=== PATIENT | female | born 1935 | race Caucasian/White ===

== ENCOUNTER 2016-03-25 22:02 | Inpatient (IN) | payer MEDICARE, MEDICAID ==
[2016-03-25] MEDS ORDERED: MORPHINE 4 MG/ML INJECTION IV ONE (22:21)
--- NOTE | 2016-03-25 22:24 | EDPRACDOC ---
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 SHE FELL ONTO HER RIGHT HIP/LEG. UNABLE TO BEAR WEIGHT. PAIN FROM RIGHT HIP TO RIGHT KNEE. DAUGHTER HAS CONCERN ABOUT HER POSSIBLY TAKING SOME OPIATES BECAUSE SHE HAS BEEN ACTING ABNORMALLY FOR THE LAST FEW DAYS. Injuries/Pain Location: Reports: pelvis (RIGHT), lower extremity (RIGHT) Reason for Fall: Reports: tripped Loss of Consciousness: no loss of consciousness Associated Symptoms (Fall): Denies: abdominal pain, chest pain, headache Allergies/Adverse Reactions: Allergies No Known Allergies Allergy (Verified 11/08/15 04:04) Home Medications: Ambulatory Orders Atenolol [Tenormin] 25 mg PO DAILY 03/12/13 Gabapentin [Neurontin] 100 mg PO TID 03/12/13 Alprazolam [Xanax] 1 mg PO HS PRN 11/27/13 Ranitidine HCl [Zantac] 150 mg PO BID 11/27/13 Acetaminophen Tablet [TYLENOL Tablet] 650 mg PO Q6H PRN #60 tablet 11/10/15 Ensure [Ensure Plus ([place])] 240 ml PO 1400 #30 can 11/10/15 Guaifenesin [Robitussin] 10 ml PO Q6H PRN #240 udc 11/10/15 ED Past Medical History - History Reviewed Yes Nurses notes reviewed and agree except as marked - Patient Medical History Cardiac History: Reports: Atrial Fibrillation, Hypertension Respiratory History: Reports: Cough GI/ History: Reports: Urinary Tract Infection, Gastroesophageal Reflux Musculoskeletal History: Reports: Arthritis, Osteoarthritis Psychological History: Reports: Anxiety. Denies: Depression, Substance Use Disorder Systemic History: Reports: Hypothyroidism. Denies: Anemia Additional Past Medical History: HYPONATREMIA Surgical History: Reports: Cholecystectomy - Family Medical History Reports: Hypertension, Cancer, Stroke, Cardiac Disorders. Denies: Diabetes - Social Medical History Smoking Status: Never smoker Social History: Denies: Cocaine Use, Marijuana Use, Substance Use Disorder Lives In: Home EDM Review of Systems - Review of Systems ROS Negative Except as Marked: Yes All systems reviewed and were negative except as marked Constitutional: negative: Fever Respiratory: negative: Shortness of Breath Cardiovascular: negative: Chest Pain Gastrointestinal: negative: Nausea, Pain, Vomiting Musculoskeletal: Hip (RIGHT), Knee (RIGHT), Leg (RIGHT UPPER LEG PAIN) - Physical Exam Constitutional: Alert Oriented to: Time, Person, Place Last recorded Vital Signs: Last Vital Signs Temp 98.1 F 03/25/16 22:10 Pulse 83 03/25/16 22:10 Resp 18 03/25/16 22:10 BP 131/68 03/25/16 22:10 Pulse Ox 95 03/25/16 22:10 Oxygen Pulse Oxygen Saturation 95 O2 Device Room Air Oxygen Flow Rate Fraction of Inspired Oxygen ( FIO2) - HEENT Head: negative: Deformity, Laceration Eye Exam: negative: Conjunctival Injection, Pale Conjunctiva Nose: negative: Congestion, Discharge, Deformity Neck: negative: Limited ROM - Respiratory/Cardiovascular Respiratory: Normal - CTA. negative: Accessory Muscle Use, Diminished, Tachypnea Cardiovascular: negative: Bradycardia, Tachycardia, Irregular - GI Auscultation: Normal Palpation: Normal Tenderness: Non tender - Musculoskeletal Extremities: Pedal Pulse (PALPABLE), Radial Pulse (PALPABLE). negative: Calf Tenderness, Pedal Edema - Integumentary Skin: Warm, Dry. negative: Rash - Neurologic Memory Impaired: Normal Mood Description: Anxious, Appropriate Thought: Coherent Perception: Normal ED Injury/Fall Exam - Physical Exam Head Injury: no evidence of injury Extremity Exam: pelvis stable, bony-point tenderness (RIGHT LATERAL HIP, RIGHT LATERAL THIGH, AND RIGHT LATERAL KNEE.) - [place] Coma Score Best Eye Response (Judith): (4) open spontaneously Best Verbal Response (Judith): (5) oriented Best Motor Response (Judith): (6) obeys commands Judith Total: 15 - Results 03/25/16 22:05 03/25/16 22:05 - EKG EKG #1 EKG Time: 22:26 -: Yes EKG interpreted by me Rate: bpm: 76 Rhythm: NSR Block: None ST: Nonsp - Departure Yes I personally saw and evaluated the patient. Disposition: Admit IP To This Hospital Condition: Stable Final Diagnosis: Anemia Intertrochanteric fracture of right hip Qualifiers: Encounter type: initial encounter Fracture type: closed Qualified Code(s): S72.141A - Displaced intertrochanteric fracture of right femur, initial encounter for closed fracture Decision to Admit Time: 23:44 Decision to admit date: 03/25/16 Decision to admit: from ED
[2016-03-25 23:01] LABS: BLOOD UREA NITROGEN 23 MG/DL (7-17); CALC CORRECTED 9.2 MG/DL (8.4-10.2); CALCIUM 8.9 MG/DL (8.4-10.2); CALCULATED OSMOLALITY 278 MOs/Kg (270-290); CHLORIDE 109 mEq/L (98-107); CPK TOTAL WITH POSSIBLE MB 32 IU/L (30-134); GLUCOSE 117 MG/DL (70-99); SODIUM LEVEL 142 mEq/L (137-146); TOTAL PROTEIN 6.8 G/DL (6.3-8.2)
[2016-03-25 23:02] LABS: AUTOMATED BASOPHIL 0.4 % (0-2); AUTOMATED EOSINOPHIL 1.9 % (0-5); AUTOMATED LYMPH 22.4 % (17-44); AUTOMATED MONOCYTE 14.8 % (3-10); AUTOMATED NEUTROPHIL 60.5 % (45-76); MPV 8.2 fL (7.4-10.4); PARTIAL THROMB. TIME 24.5 SEC (22-35)
[2016-03-25 23:24] LABS: ALL NEG? NO
--- NOTE | 2016-03-25 23:26 | DIRPT ---
CLINICAL DATA: Fall tripping over door mat. Difficulty bearing weight. EXAM: CHEST 1 VIEW COMPARISON: 10/03/2015 FINDINGS: Atherosclerotic calcification of the aortic arch and borderline enlargement of the cardiopericardial silhouette, without edema. Dextroconvex lower thoracic scoliosis. The lungs appear clear. No pneumothorax or pleural effusion. IMPRESSION: 1. Stable appearance of aortic atherosclerosis and tortuosity, borderline enlargement of the cardiopericardial silhouette, and thoracic scoliosis. Electronically Signed By: Elroy Potts M.D. On: 03/25/2016 23:23
--- NOTE | 2016-03-25 23:27 | DIRPT ---
CLINICAL DATA: Status post fall from standing, onto right hip. Right hip pain. Initial encounter. EXAM: BILATERAL HIP (WITH PELVIS) 3-4 VIEWS COMPARISON: CT of the abdomen and pelvis performed 09/07/2015 FINDINGS: There is a comminuted right femoral intertrochanteric fracture, with lateral displacement of the distal femur, and medial angulation. There are chronic displaced fractures of the lateral superior and inferior pubic rami bilaterally, with some degree of healing response noted particularly at the inferior pubic rami. The right superior pubic ramus fracture likely extends to the acetabulum. Degenerative change is noted along the lower lumbar spine. Sclerotic change is seen at the sacroiliac joints. The visualized bowel gas pattern is grossly unremarkable. IMPRESSION: 1. Acute comminuted right femoral intertrochanteric fracture, with lateral displacement of the distal femur, and medial angulation. 2. Chronic displaced fractures of the superior and inferior pubic rami bilaterally, with some degree of healing response noted particularly at the inferior pubic rami. The right superior pubic ramus fracture likely extends to the acetabulum. Electronically Signed By: Sahil Cesar M.D. On: 03/25/2016 23:24
--- NOTE | 2016-03-25 23:28 | DIRPT ---
CLINICAL DATA: Fall from standing height, unable to bear weight. Right lower extremity pain. EXAM: RIGHT FEMUR - 2 VIEW COMPARISON: None. FINDINGS: The tops of the femurs are included on the pelvis exam and demonstrate and intertrochanteric fracture of the right hip along with pelvic fractures. Tricompartmental spurring and articular space loss in the knee noted with chondrocalcinosis of the menisci. No femoral shaft fracture identified. IMPRESSION: 1. The intertrochanteric fracture the right proximal femur is shown on the dedicated hip and pelvis radiographs. No distal femoral fracture is identified. 2. Chondrocalcinosis of the knee with tricompartmental spurring and articular space narrowing. Electronically Signed By: Elroy Potts M.D. On: 03/25/2016 23:25
--- NOTE | 2016-03-25 23:29 | DIRPT ---
CLINICAL DATA: Fall, unable to bear weight on the right lower extremity. EXAM: RIGHT KNEE - 1-2 VIEW COMPARISON: 04/19/2008 FINDINGS: Chondrocalcinosis with worsening loss of articular space especially in the medial compartment and patellofemoral joint, and progressive marginal spurring. No knee effusion or fracture identified. Atherosclerotic calcification noted. No knee effusion. IMPRESSION: 1. 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 No acute findings in the knee. Electronically Signed By: Elroy Potts M.D. On: 03/25/2016 23:26
[2016-03-25 23:35] LABS: MDMA* NEG (NEGATIVE); METHAMPHETAMINES NEG (NEGATIVE)
[2016-03-25 23:36] LABS: OXYCODONE NEG (NEGATIVE)
[2016-03-25 23:44] LABS: LEUKOCYTES/URINE 2+ (NEGATIVE); NITRITE/URINE NEG (NEGATIVE); URINE OCCULT BLOOD 1+ (NEG/TRACE); WBC/URINE TNTC (0-5)
[2016-03-26] MEDS ORDERED: CHLORHEXIDINE (HIBICLENS) 4 OZ BOTTLE TOP ONE (00:07)
--- NOTE | 2016-03-26 01:00 | HISTPHYS ---
- Chief Complaint fall - History of Present Illness PRIMARY CARE PROVIDER: Dr. Sanchez HPI: The patient is an 81 yo woman who fell. The patient was walking and caught her foot on the rug, and fell. She had instant pain in her right hip and could not stand up. Onset: last night (several hours ago) Duration: intermittent. Location: right hip. Radiation: right leg. Character: 10/10. Sharp pain. Alleviated by: Nothing. Exacerbated by: Nothing. Associated Symptoms: Difficulty moving leg. Can move toes. No numbness. Noticed a color change of her urine. No dysuria. Headache. Treatments: none at home except usual medications. - Medical History Cardiac History: Reports: Atrial Fibrillation, Hypertension. Denies: Congestive Heart Failure, Heart Attack Respiratory History: Reports: Cough GI/ History: Reports: Urinary Tract Infection, Gastroesophageal Reflux Musculoskeletal History: Reports: Arthritis, Osteoarthritis (and back pain, fracture) Systemic History: Reports: Hypothyroidism (after thyroidectomy). Denies: Anemia Neurological History: Denies: Cerebrovascular Accident Psychological History: Reports: Anxiety. Denies: Depression, Substance Use Disorder - Surgical History Reports: Appendectomy, Cholecystectomy, Other (Back surgery. Thyroidectomy.) - Medictions/Allergies Allergies No Known Allergies Allergy (Verified 11/08/15 04:04) Current Medication List: Reviewed Home Medications Atenolol [Tenormin] 25 mg PO DAILY 03/12/13 Gabapentin [Neurontin] 100 mg PO TID 03/12/13 Alprazolam [Xanax] 1 mg PO HS PRN 11/27/13 Ranitidine HCl [Zantac] 150 mg PO BID 11/27/13 Acetaminophen Tablet [TYLENOL Tablet] 650 mg PO Q6H PRN #60 tablet 11/10/15 Ensure [Ensure Plus ([place])] 240 ml PO 1400 #30 can 11/10/15 Guaifenesin [Robitussin] 10 ml PO Q6H PRN #240 udc 11/10/15 - Family History Reports: Hypertension, Cancer, Stroke, Cardiac Disorders. Denies: Diabetes - Social History Smoking Status: Never smoker Social History: Denies: Alcohol Use, Substance Use Disorder - Review of Systems GENERAL: No Fever, chills, or diaphoresis. Positive for fatigue/malaise. HEENT: No ear pain or discharge. No nasal discharge or bleeding. No throat pain or swelling. No eye pain or eye redness. RESPIRATORY: No cough, wheezing, or shortness of breath. CARDIOVASCULAR: No chest pain or palpitations. GI: No abdominal pain, nausea, vomiting, diarrhea, constipation, or bloody stool. NEUROLOGICAL: No headache or focal weakness. INTEGUMENT: no rashes, itching, or lesions. LYMPHATIC SYSTEM: no lymph node swelling or pain. MUSCULOSKELETAL: Except as per HPI; othwervise, no new pain or joint swelling. GENITOURINARY: Noticed a color change of her urine. No dysuria or hematuria. ENDOCRINE: No polyuria or polydipsia. HEME: No chronic anemia, bleeding, or easy bruising. - Physical Exam Vital Signs: Initial Vitals Temperature 98.1 F 03/25/16 22:10 Pulse Rate 83 03/25/16 22:10 Respiratory Rate 18 03/25/16 22:10 Blood Pressure 131/68 03/25/16 22:10 Pulse Oxygen Saturation 95 03/25/16 22:10 Vital Signs - 24 hr 03/25/16 03/25/16 03/26/16 22:10 23:32 00:41 Temperature 98.1 F Pulse Rate 83 75 79 Respiratory 18 22 18 Rate Blood Pressure 131/68 148/71 150/75 Pulse Oxygen 95 96 96 Saturation Weight: 62.2 kg Height: 5' BMI: 26.8 - Other Exam Other Exam Findings: GENERAL: Ill-appearing, well nourished, in acute distress. HEENT: Normocephalic, atraumatic; pupils equal and round. Nares patent, without discharge or bleeding. No oropharyngeal lesions or erythema. Mucous membranes are dry. NECK: is supple, no masses, trachea midline. RESPIRATORY: Clear to auscultation bilaterally. Chest wall movements are symmetric. No use of accessory muscles to breathe. No wheezing, rales, rhonchi. CARDIOVASCULAR: Normal S1, S2. No rubs, or gallops. PMI non-displaced. Carotids : no carotid bruits. No bradycardia or tachycardia. DP pulses 2+ bilaterally. GI: soft, nontender, non-distended, normal active bowel sounds. No hepatosplenomegaly. INTEGUMENT: Clean, dry, and intact. No rashes. No lesions. MUSCULOSKELETAL: . No cyanosis. No clubbing. Edema: none bilaterally. Tenderness on right hip and right upper thigh. NEUROLOGICAL: Cranial nerves 2-12 grossly intact. Motor 5/5 throughout. Reflexes : 2+ bilaterally. Babinski: toes downgoing bilaterally. Intact Finger to nose. Sensory grossly intact to light touch. Intact rapid alternating movements bilaterally. No pronator drift. PSYCHIATRIC: Fully oriented. Normal and appropriate affect. LYMPHATIC: No cervical lymphadenopathy. No supraclavicular lymphadenopathy. - Lab Results Laboratory Results - last 24 hr 03/25/16 03/25/16 03/25/16 22:05 22:05 22:05 WBC 9.7 RBC 3.20 L Hgb 11.0 L Hct 32.5 L MCV 102 H MCH 34.5 H MCHC 33.9 RDW 12.9 Plt Count 196 MPV 8.2 Neut % (Auto) 60.5 Lymph % (Auto) 22.4 [place] % (Auto) 14.8 H Eos % (Auto) 1.9 Baso % (Auto) 0.4 Absolute Neuts (auto) 5.82 Absolute Lymphs (auto) 2.13 PT INR APTT Sodium 142 Potassium 3.6 Chloride 109 H Carbon Dioxide 19 L Anion Gap 18 H BUN 23 H Creatinine 0.80 Estimated GFR (MDRD) > 60 Glucose 117 H Calculated Osmolality 278 Calcium 8.9 Corrected Calcium 9.2 Total Bilirubin 0.4 AST 57 H ALT 67 H Alkaline Phosphatase 210 H Creatine Kinase 32 Troponin I < 0.01 Total Protein 6.8 Albumin 3.7 Urine Color Urine Clarity Urine pH Ur Specific [place] Urine Protein Urine Glucose (UA) Urine Ketones Urine Occult Blood Urine Nitrite Urine Bilirubin Urine Urobilinogen Ur Leukocyte Esterase Urine RBC Urine WBC Urine WBC Clumps Ur Epithelial Cells Urine Bacteria Urine Opiates Screen Ur Oxycodone Screen Urine Methadone Screen Ur Barbiturates Screen Ur Tricyclics Screen Ur Phencyclidine Scrn Ur Amphetamines Screen U Methamphetamines Scrn Urine MDMA Screen U Benzodiazepines Scrn Urine Cocaine Screen Ur THC Screen Blood Type O POSITIVE Antibody Screen Negative 03/25/16 03/25/16 03/25/16 22:05 23:19 23:19 WBC RBC Hgb Hct MCV MCH MCHC RDW Plt Count MPV Neut % (Auto) Lymph % (Auto) [place] % (Auto) Eos % (Auto) Baso % (Auto) Absolute Neuts (auto) Absolute Lymphs (auto) PT 10.0 INR 1.0 APTT 24.5 Sodium Potassium Chloride Carbon Dioxide Anion Gap BUN Creatinine Estimated GFR (MDRD) Glucose Calculated Osmolality Calcium Corrected Calcium Total Bilirubin AST ALT Alkaline Phosphatase Creatine Kinase Troponin I Total Protein Albumin Urine Color Yellow Urine Clarity Sl cldy Urine pH 6.0 Ur Specific [place] 1.015 Urine Protein 1+ H Urine Glucose (UA) Neg Urine Ketones Neg Urine Occult Blood 1+ H Urine Nitrite Neg Urine Bilirubin Neg Urine Urobilinogen <2.0 Ur Leukocyte Esterase 2+ H Urine RBC 10-20 H Urine WBC Tntc H Urine WBC Clumps Present H Ur Epithelial Cells Occ Urine Bacteria 3+ H Urine Opiates Screen *positive* H Ur Oxycodone Screen Neg Urine Methadone Screen Neg Ur Barbiturates Screen Neg Ur Tricyclics Screen Neg Ur Phencyclidine Scrn Neg Ur Amphetamines Screen Neg U Methamphetamines Scrn Neg Urine MDMA Screen Neg U Benzodiazepines Scrn Neg Urine Cocaine Screen Neg Ur THC Screen Neg Blood Type Antibody Screen - Diagnostic Findings DIAGNOSTIC DATA: EK bpm.Unusual P axis, possible ectopic atrial rhythm. Minimal voltage criteria for LVH. T-wave inversion in lead 3. Reviewed EKG personally. IMAGING: Chest x-ray, viewed personally: EXAM: CHEST 1 VIEW COMPARISON: 10/03/2015 FINDINGS: Atherosclerotic calcification of the aortic arch and borderline enlargement of the cardiopericardial silhouette, without edema. Dextroconvex lower thoracic scoliosis. The lungs appear clear. No pneumothorax or pleural effusion. IMPRESSION: 1. Stable appearance of aortic atherosclerosis and tortuosity, borderline enlargement of the cardiopericardial silhouette, and thoracic scoliosis. Hip X-ray: EXAM: BILATERAL HIP (WITH PELVIS) 3-4 VIEWS COMPARISON: CT of the abdomen and pelvis performed 09/07/2015 FINDINGS: There is a comminuted right femoral intertrochanteric fracture, with lateral displacement of the distal femur, and medial angulation. There are chronic displaced fractures of the lateral superior and inferior pubic rami bilaterally, with some degree of healing response noted particularly at the inferior pubic rami. The right superior pubic ramus fracture likely extends to the acetabulum. Degenerative change is noted along the lower lumbar spine. Sclerotic change is seen at the sacroiliac joints. The visualized bowel gas pattern is grossly unremarkable. IMPRESSION: 1. Acute comminuted right femoral intertrochanteric fracture, with lateral displacement of the distal femur, and medial angulation. 2. Chronic displaced fractures of the superior and inferior pubic rami bilaterally, with some degree of healing response noted particularly at the inferior pubic rami. The right superior pubic ramus fracture likely extends to the acetabulum. EXAM: RIGHT FEMUR - 2 VIEW COMPARISON: None. FINDINGS: The tops of the femurs are included on the pelvis exam and demonstrate and intertrochanteric fracture of the right hip along with pelvic fractures. Tricompartmental spurring and articular space loss in the knee noted with chondrocalcinosis of the menisci. No femoral shaft fracture identified. IMPRESSION: 1. The intertrochanteric fracture the right proximal femur is shown on the dedicated hip and pelvis radiographs. No distal femoral fracture is identified. 2. Chondrocalcinosis of the knee with tricompartmental spurring and articular space narrowing. EXAM: RIGHT KNEE - 1-2 VIEW COMPARISON: 04/19/2008 FINDINGS: Chondrocalcinosis with worsening loss of articular space especially in the medial compartment and patellofemoral joint, and progressive marginal spurring. No knee effusion or fracture identified. Atherosclerotic calcification noted. No knee effusion. IMPRESSION: 1. 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 No acute findings in the knee. - Assessment (1) Intertrochanteric fracture of right hip S72.141A - DISPLACED INTERTROCHANTERIC FRACTURE OF RIGHT FEMUR, INIT Acute Present on Admission: Yes Qualifiers: Encounter type: initial encounter Fracture type: closed Qualified Code(s) : S72.141A - Displaced intertrochanteric fracture of right femur, initial encounter for closed fracture Plan: Surgical management per Orthopedic surgeon. Patient is at mild to moderate risk due to her age and hypertension, but benefits of surgery outweigh any risks, so would recommend proceeding with surgery. (2) Acute cystitis with hematuria N30.01 - ACUTE CYSTITIS WITH HEMATURIA Acute Present on Admission: Yes Plan: Cultures. IV ceftriaxone. (3) Elevated LFTs R94.5 - ABNORMAL RESULTS OF LIVER FUNCTION STUDIES Acute Present on Admission: Yes No abdominal pain or abdominal symptoms. Plan: Consider recheck of labs in a few days. (4) Right hip pain M25.551 - PAIN IN RIGHT HIP Acute Present on Admission: Yes Plan: IV dilaudid. - Plan Note: Per report, one of patient's daughters gave the patient some of the daughter's narcotic pain medication. The patient admitted that the daughter gave her pain medication, but the patient initially reported it was just Tylenol, then admitted that the pain medication was narcotic. Drug screen was positive for opiates. Patient informed that it is illegal to take someone else's pain medication and that it is also dangerous. Patient advised never to take someone else's medication. Case Care Discussed with: Patient, Nursing Staff
[2016-03-26 01:09] VITALS: BMI 26.3
[2016-03-26] MEDS: HYDROmorphone 1 MG INJECTION IV PRN ×2 (02:00→05:37)
[2016-03-26] MEDS: CEFTRIAXONE 1 GM in D5W 100 ML IV SCH (02:01)
[2016-03-26] MEDS ORDERED: Non-Formulary Medication ITEM (Alprazolam [Xanax] 1 MG) PO PRN (02:29)
[2016-03-26] MEDS ORDERED: GUAIFEN 100 MG-DEXTROMETH 10 MG PER 5 ML PO PRN (02:34)
[2016-03-26] MEDS ORDERED: SIMETHICONE 80 MG TAB PO PRN (02:34)
[2016-03-26] MEDS ORDERED: BENZONATATE 100 MG PERLES PO PRN (02:34)
[2016-03-26] MEDS ORDERED: BISACODYL 5 MG TAB PO PRN (02:34)
[2016-03-26] MEDS ORDERED: PROMETHAZINE 25 MG/ML VIAL IV PRN (02:34)
[2016-03-26] MEDS ORDERED: Docusate Sodium 100 MG CAP PO PRN (02:34)
[2016-03-26] MEDS ORDERED: ONDANSETRON HCL 4 MG/2 ML VIAL IV PRN ×2 (02:34→12:08)
[2016-03-26] MEDS ORDERED: ACETAMINOPHEN 325 MG SUPP PR PRN (02:34)
[2016-03-26] MEDS ORDERED: ACETAMINOPHEN 325 MG/TAB TABLET PO PRN (02:34)
[2016-03-26] MEDS ORDERED: SENNA CONCENTRATE TAB PO PRN (02:34)
[2016-03-26 03:43] LABS: MPV 8.1 fL (7.4-10.4)
[2016-03-26 03:47] LABS: BLOOD UREA NITROGEN 19 MG/DL (7-17); CALCIUM 8.9 MG/DL (8.4-10.2); CALCULATED OSMOLALITY 272 MOs/Kg (270-290); CHLORIDE 106 mEq/L (98-107); GLUCOSE 118 MG/DL (70-99); SODIUM LEVEL 140 mEq/L (137-146)
[2016-03-26] MEDS: GABAPENTIN 100 MG CAP PO SCH ×3 (05:36→20:45)
[2016-03-26] MEDS ORDERED: MUPIROCIN 2% OINT 22 GM TUBE NAS SCH (06:00)
[2016-03-26] MEDS ORDERED: Acetaminophen, Intravenous 1,000 MG/100 ML IVBOT IV ONE (06:00)
[2016-03-26] MEDS ORDERED: CEFAZOLIN 1 GM VIAL IV ONE (06:00)
[2016-03-26] MEDS: ATENOLOL 25 MG TAB PO SCH (08:47)
--- NOTE | 2016-03-26 08:53 | PCM.ORTHCO ---
Consultation Date: 03/26/16 Reason for Consult: Fracture (R hip) - History of Present Illness Mrs Linares is an 81-year-old female who presented to [facility] ER after suffering a mechanical fall from a standing height onto her right hip. She noted immediate pain was unable to bear weight. She was found to have a comminuted right intertrochanteric hip fracture. She did not hit her head. Did not lose consciousness. Denies having any chest pain, shortness of breath or palpitations presently or prior to her fall. She denies having any pain elsewhere or other associated injury. No pre-existing hip pain prior to her fall. She does have a history of severe osteoarthritis of her knees Chief Complaint: fall - Past Medical and Surgical History Cardiac History: Reports: Atrial Fibrillation, Hypertension. Denies: Congestive Heart Failure, Heart Attack Respiratory History: Reports: Cough GI/ History: Reports: Urinary Tract Infection, Gastroesophageal Reflux Systemic History: Reports: Hypothyroidism (after thyroidectomy). Denies: Anemia Musculoskeletal History: Reports: Arthritis, Osteoarthritis (and back pain, fracture) Psychological History: Reports: Anxiety. Denies: Depression, Alcoholism, Substance Use Disorder Neurological History: Denies: Cerebrovascular Accident Past Surgical History: Reports: Appendectomy, Cholecystectomy, Other (Back surgery. Thyroidectomy.) Allergies No Known Allergies Allergy (Verified 11/08/15 04:04) Home Medications Atenolol [Tenormin] 25 mg PO DAILY 03/12/13 Gabapentin [Neurontin] 100 mg PO TID 03/12/13 Alprazolam [Xanax] 1 mg PO HS PRN 11/27/13 Ranitidine HCl [Zantac] 150 mg PO BID 11/27/13 Acetaminophen Tablet [TYLENOL Tablet] 650 mg PO Q6H PRN #60 tablet 11/10/15 Ensure [Ensure Plus ([place])] 240 ml PO 1400 #30 can 11/10/15 Guaifenesin [Robitussin] 10 ml PO Q6H PRN #240 udc 11/10/15 - Social History Smoking Status: Never smoker Social History: Denies: Alcohol Use, Substance Use Disorder - Family History Reports: Hypertension, Cancer, Stroke, Cardiac Disorders. Denies: Diabetes - Review of Systems Yes All systems reviewed and were negative except as marked Musculoskeletal:: Other (Right hip pain, swelling, inability to bear weight) - Physical Exam Vital Signs: Initial Vitals Temperature 98.1 F 03/25/16 22:10 Pulse Rate 83 03/25/16 22:10 Respiratory Rate 18 03/25/16 22:10 Blood Pressure 131/68 03/25/16 22:10 Pulse Oxygen Saturation 95 03/25/16 22:10 Constitutional: No apparent distress Oriented to: Time, Person, Place - HEENT Head: Normal - Musculoskeletal Extremities: Other (Patient's right hip is shortened and externally rotated on inspection. She is tender to palpate laterally of the trochanter. Moderate edema and mild ecchymosis are present. Compartments are soft. Right knee is without effusion. She has mild tenderness to palpation about the distal thigh. She is able to fully plantar flex and dorsiflex her ankle distally. Subjective sensation to light touch intact L4-S1 distally bilateral lower extremities. Palpable dorsalis pedis and posterior tibial pulses bilaterally. Remaining bony prominences of bilateral upper and lower extremities were palpated without tenderness, step-off, or deformity) - Lab Results 03/26/16 02:15 03/26/16 02:15 - Diagnostic Findings Full length right femur x-rays as well as an AP pelvis done the ER were personally reviewed. X-rays reveal a comminuted right intertrochanteric hip fracture with moderate varus displacement. Evidence of healed superior and inferior pubic ramus fractures noted as well - Assessment/Plan (1) Intertrochanteric fracture of right hip S72.141A - DISPLACED INTERTROCHANTERIC FRACTURE OF RIGHT FEMUR, INIT Acute initial encounter closed S72.141A - Displaced intertrochanteric fracture of right femur, initial encounter for closed fracture Case Care Discussed with: Patient, Family, Nursing Staff Plan: 1. Right intertrochanteric hip fracture 2. Chronic right sided superior and inferior pubic ramus fractures 3. UTI -NPO -pain control -Ancef 1 g IV on-call the OR. The patient is presently being treated with IV Rocephin for her UTI urinary tract infection -recommendations for intramedullary nailing of her hip fracture were made to the patient. Risks of the procedure to include but not limited to: Infection, blood loss, blood clots, neurovascular injury, malunion, nonunion, hardware failure, persistent pain, stroke, [place], , any risks of anesthesia, or need further procedures were discussed with the patient and her family at bedside. They do understand these risks and elected to proceed with the planned procedure -on-call to the OR today
[2016-03-26] MEDS ORDERED: RANITIDINE 150 MG TAB PO SCH (09:00)
[2016-03-26] MEDS ORDERED: Vaccine Screening Complete SCH (09:00)
[2016-03-26] MEDS ORDERED: SUCCINYLCHOLINE 20 MG/1 ML INJ 10 ML MDV IV ONE (10:00)
[2016-03-26] MEDS ORDERED: METOCLOPRAMIDE 10 MG/2 ML VIAL IV ONE (10:00)
[2016-03-26] MEDS ORDERED: PHENYLEPHRINE 10 MG/ML VIAL IC ONE (10:00)
[2016-03-26] MEDS ORDERED: MIDAZOLAM 2 MG/2 ML VIAL IV ONE (10:00)
[2016-03-26] MEDS ORDERED: LIDOCAINE 100 MG PFS IV ONE (10:00)
[2016-03-26] MEDS ORDERED: FENTANYL 100 MCG/2 ML VIAL IV ONE (10:00)
[2016-03-26] MEDS ORDERED: PROPOFOL 200 MG/20 ML VIAL IV ONE (10:00)
[2016-03-26] MEDS ORDERED: BUPIVACAINE 0.25%-EPINEPHRINE 1:200,000 30 ML ONE (12:03)
--- NOTE | 2016-03-26 12:05 | HIM.ANES ---
Anesthesia Evaluation & Plan Diagnoses: right femoral intertrochanteric fx Consented Procedure: im nail Surgeon:: Félix Soliz - Focused Review of Systems Cardiac History: Yes: Hx Hypertension, Hx Cardiac Disorders, Hx Abnormal Cholesterol/Hyperlipidemia No: Hx Heart Attack, Hx Congestive Heart Failure EKG Rhythm: Sinus Rhythm HEENT: Yes: Cataracts, Cataract Removal Gastrointestinal: Yes: Hx Gastroesophageal Reflux Disease, Hx Gastrointestinal Disorders Neurological/Musculoskeletal: No: HX Cerebrovascular Accident, Hx Neurological Disorders Physiological: Yes Hx Anxiety, No Hx Depression, Yes Hx Mental/Emotional Disorders Endocrine: Yes: Hx Hypothyroidism (after thyroidectomy) Blood/Autoimmune: No: Hx Blood Transfusions, Hx Anemia, Hx AIDS, Hx Hepatitis (type) Smoking Status: Never smoker Past Social History: Denies: Alcohol Use, Cocaine Use, Marijuana Use, Substance Use Disorder Hx Chest Xray (date): Yes Surgical History: Yes: Appendectomy, Cholecystectomy, Back, Other (Back surgery. Thyroidectomy.) Other Surgical History: tubes tied - Focused Physical Exam NPO since: midnight Mallampati: Class I Thyromental Distance: Greater than 3 Neck: Full Range of Motion Dental: Other (edentulous) Cardiovascular/Chest: Normal Respiratory: Lungs clear Any problems with anesthesia, including nausea and vomiting?: No Any relatives with a history of Malignant Hyperthermia?: No Does patient have a history of Malignant Hyperthermia?: No Beta Mis given (if appropriate): Yes Other: Problem List Problem Status Onset Acute cystitis with hematuria Acute Anemia Acute Elevated LFTs Acute Intertrochanteric fracture of right hip Acute Right hip pain Acute Abdominal pain Acute Anemia Acute Dehydration Acute Esophageal stricture Acute Hyponatremia Acute Nausea and vomiting Acute Nausea vomiting and diarrhea Acute Atrial fibrillation, currently in sinus rhythm Chronic GERD (gastroesophageal reflux disease) Chronic Hypertension Chronic PT/PTT/INR/ PT 10.0 SEC (9.2-11.2) 03/25/16 22:05 INR 1.0 03/25/16 22:05 APTT 24.5 SEC (22-35) 03/25/16 22:05 CBC/BMP/Other 03/26/16 02:15 03/26/16 02:15 Allergies Allergy/AdvReac Type Severity Reaction Status Date / Time No Known Allergies Allergy Verified 11/08/15 04:04 Home Medications Medication Instructions Recorded Last Taken Type Atenolol [Tenormin] 25 mg PO DAILY 03/12/13 03/25/16 History Gabapentin [Neurontin] 100 mg PO TID 03/12/13 03/25/16 History Alprazolam [Xanax] 1 mg PO HS PRN 11/27/13 03/24/16 History Ranitidine HCl [Zantac] 150 mg PO BID 11/27/13 03/25/16 History Acetaminophen Tablet [TYLENOL 650 mg PO Q6H PRN #60 tablet 11/10/15 Unknown Rx Tablet] Ensure [Ensure Plus ([place])] 240 ml PO 1400 #30 can 11/10/15 03/25/16 Rx Guaifenesin [Robitussin] 10 ml PO Q6H PRN #240 udc 11/10/15 Unknown Rx Height and Weight Patient's height 5 ft Patient's weight 61.144 kg Weight (Calculated Kilograms) 61.144 BMI 26.3 Vital Signs Temperature 99.2 F 03/26/16 08:53 Pulse Rate 103 03/26/16 08:53 Respiratory Rate 17 03/26/16 08:53 Blood Pressure 146/67 03/26/16 08:53 Pulse Oxygen Saturation 95 03/26/16 08:53 METS - Level of Activity: Eating, Dressing, walking around house, dishwashing - Anesthetic Plan Anesthesia Type: General ASA Class: 3 -: I have examined this patient and reviewed the medical record. The patient has been assessed prior to anesthesia. Risks and benefits of anesthesia and anesthetic technique options have been discussed and all questions answered. The patient accepts the risk and desires me to proceed with the planned anesthetic.
[2016-03-26] MEDS ORDERED: FENTANYL 100 MCG/2 ML VIAL IV PRN ×2 (12:08)
[2016-03-26] MEDS ORDERED: ONDANSETRON HCL 4 MG ODT TAB PO PRN (12:08)
[2016-03-26] MEDS ORDERED: MEPERIDINE 25 MG/ML TUBEX IV PRN (12:08)
[2016-03-26] MEDS ORDERED: LABETALOL 20 MG/4 ML SYRINGE IV PRN (12:08)
[2016-03-26] MEDS ORDERED: HYDROmorphone 1 MG INJECTION IV PRN ×4 (12:08→13:23)
[2016-03-26] MEDS ORDERED: hydrALAZINE 20 MG/ML VIAL IV PRN (12:08)
--- NOTE | 2016-03-26 13:02 | DIRPT ---
CLINICAL DATA: ORIF of right intertrochanteric hip fracture. EXAM: RIGHT FEMUR - 2 VIEW COMPARISON: 03/25/2016 FINDINGS: Intraoperative images obtained with a C-arm demonstrate normal alignment of an intramedullary nail extending from the region of the right greater trochanter into the distal femoral metaphysis. Intervening gamma nail extends across the femoral neck. There is evidence of near anatomic alignment at the level of the intratrochanteric hip fracture. IMPRESSION: Near anatomic alignment of the proximal right femur after ORIF of the intertrochanteric hip fracture. Electronically Signed By: Steven Savage M.D. On: 03/26/2016 13:00
[2016-03-26] MEDS ORDERED: MAGNESIUM HYDROXIDE 30 ML BOTTLE PO PRN (13:23)
[2016-03-26] MEDS ORDERED: BISACODYL 10 MG SUPP PR PRN (13:23)
[2016-03-26] MEDS ORDERED: DIPHENHYDRAMINE 50 MG/ML VIAL IV PRN (13:23)
[2016-03-26] MEDS ORDERED: DIPHENHYDRAMINE 25 MG CAP PO PRN (13:23)
[2016-03-26] MEDS ORDERED: Aluminum;Magnesium;Simethicone 30 ML UDC PO PRN (13:23)
--- NOTE | 2016-03-26 13:39 | HIMOPRPT ---
DATE OF PROCEDURE: 03/26/16 PREOPERATIVE DIAGNOSIS: Right peritrochanteric/subtrochanteric hip fracture POSTOPERATIVE DIAGNOSIS: Same PROCEDURE: IM eliza right hip. Long gamma nail. SURGEON: Félix Soliz D.O. ANESTHESIOLOGIST: Dr. Rodríguez ANESTHESIA: CARLYLE ESTIMATED BLOOD LOSS: 100cc COMPLICATIONS: none DRAINS: none SPECIMENS: none FINDING: unstable peritrochanteric fracture with subtrochanteric extension DESCRIPTION OF PROCEDURE: Mrs Linares is an 81-year-old female who presented [facility] ER after falling from a standing height landing directly on her right hip. She was found to have a intertrochanteric hip fracture of the right hip. She was admitted to the hospitalist service and optimized for the operating room. Recommendations for intramedullary nailing of the right hip were made. All risks, benefits, and alternatives to the planned procedure were discussed with the patient and her family. They did understand these risks and elected to proceed with the planned surgery. On the day of her procedure she was identified in the preop holding area and the right lower extremity was marked as correct operative side. She was then taken the operating room where successful induction of general anesthesia was performed. She was then positioned on the fracture table all bony prominences well padded. Left leg was placed into the well leg hernandez and the right lower extremity was placed into traction. Intraoperative C-arm was then utilized as a reduction was achieved. The reduction was significantly difficult to achieve with gross traction and traction the table. A crutch posteriorly and pressure posteriorly throughout the case were required to hold the reduction. When adequate reduction was achieved the patient was given 1 g of Ancef IV prior to incisions being made. The right lower extremity was then prepped and draped in sterile fashion. A time-out was performed, again identifying the correct patient and the right side as correct operative side. A 3 cm incision was then made at the junction of the ASIS and tip of the greater trochanter laterally. Subcutaneous tissues were dissected down to the fascia. Fascia was incised in line incision. Metzenbaum scissors were used to split the fascia down to the tip of the trochanter. Guide pin was then inserted at the junction of the 1/3 and posterior 2/3 of the trochanter. This was advanced under fluoroscopy. It was checked in the AP and lateral planes. I was happy with the position of the guide pin the hand-held awl was then used to gain access to the proximal femur. A ball-tip guidewire was then passed. Depth gauge was used measuring a 360 mm nail. This point flexible reamers were passed through the isthmus of the femoral canal. Reamers up to a 12.5 mm Reamer which gave adequate chatter were used. An 11 major nail was chosen. This was inserted by hand and seated finally with a mallet. With the crutch in place posteriorly and a mallet used to apply pressure on the femoral head and neck fragment anteriorly that are was used and incision was made over the distal lateral thigh. The fascia was split and the targeting cannula was inserted down to the lateral cortex. The guide pin was then inserted slightly inferior in the femoral head and neck and into the center center position on the lateral view with the fracture held reduced with these reduction maneuvers. We had fracture reduced while the step-cut Reamer was placed. The depth gauge previously used measured a 105 mm lag screw. After the step-cut Reamer was placed the lag screw was inserted by hand. No fracture displacement occurred during insertion of the screw. Next compression was achieved at the fracture site as the compression bolt was tightened. The nail was then locked proximally with the locking bolt and released 1/4 turn to allow the screw to slide and gain compression. Fracture was checked in AP and lateral planes with fluoroscopy and anatomic reduction was achieved. Perfect circles were then achieved with the C-arm distally and 1 distal locking screw was placed by hand lateral to medial measuring 50 mm. Final AP and lateral fluoroscopic views were taken. The wounds were there 0 then thoroughly irrigated with sterile saline. Fascia was closed with interrupted 1. Vicryl sutures for watertight closure. Subcutaneous tissues were closed with 2 O Vicryl interrupted sutures followed by 3 0 Monocryl and Dermabond for the skin. Bulky sterile compressive dressing was applied at the end of the case. Patient was then carefully transferred from the fracture table to her hospital bed. She did tolerate this procedure well and was transferred to the PACU in stable condition. Postop plan for the patient includes 24 hours of IV antibiotics. Will start Lovenox on postop day 1. For DVT prophylaxis. She will be toe-touch weight- bearing on the right lower extremity for 6 weeks using a walker and wheelchair. She will need care home facility upon discharge. Postop follow-up in 4 weeks. Implants: Tanisha long gamma nail 11 x 360 mm x 125 105 mm lag screw. 50 mm x 5.0 mm distal locking screw
[2016-03-26] MEDS ORDERED: NALOXONE 0.4 MG/ML AMPULE IV SCH ×2 (14:00)
[2016-03-26] MEDS ORDERED: Pharmacy Discontinue All Previous Acetaminophen Orders SCH (14:00)
[2016-03-26] MEDS ORDERED: Pharmacy Change IV Fluid Rate to KVO XX SCH (14:00)
--- NOTE | 2016-03-26 14:21 | SC.ANESPOS ---
Post-Anesthesia Note LOC: Fully Awake Post-Anesthesia Assessment: Awake, Returned to Baseline, Hemodynamically Stable , Pain Control Adequate Phase I & II Recovery Complete: Yes Apparent Anesthesia Complication: No : N PACU Discharge Time: 14:10 - Vital Signs Blood Pressure: 119/57 Pulse: 70 Resp Rate: 24 O2 Sat: 99 Temp: 97.9 F - Comments Anesthesia Discharge Time Report Time 14:10
--- NOTE | 2016-03-26 14:37 | DIRPT ---
CLINICAL DATA: Right proximal femur fracture. EXAM: RIGHT HIP (WITH PELVIS) 1 VIEW PORTABLE COMPARISON: March 25, 2016. FINDINGS: Status post intra medullary eliza fixation of fracture involving intertrochanteric region of proximal right femur. Improved alignment of fracture components is noted. Surgical screw is seen extending through greater trochanter into right femoral neck and head. Expected postsurgical changes are noted. IMPRESSION: Status post surgical internal fixation of proximal right intertrochanteric femoral fracture. Electronically Signed By: Adolph Hartmann Jr, M.D. On: 03/26/2016 14:34
[2016-03-26] MEDS ORDERED: DIATRIZOATE MEGLMINE/SODIUM 30 ML BOTTLE ONE (14:49)
[2016-03-26] MEDS: [UNRECOGNIZED DRUG - OTHER] PO SCH (14:53)
[2016-03-26] MEDS: D5W/NS/KCl 20 mEq 1,000 ML IV SCH ×2 (14:53→22:59)
[2016-03-26] MEDS: Cefazolin 2gm/50 ml D5W 2 GM/50 ML RTU IV SCH ×2 (14:54→22:43)
[2016-03-26] MEDS: OXYCODONE HCL 5 MG TABLET PO PRN (16:14)
[2016-03-26] MEDS: SODIUM CHLORIDE 0.9% 3 ML FLUSH FLUSH SCH (17:38)
[2016-03-26] MEDS: CALCIUM CARBONATE + VITAMIN D 500 MG TAB PO SCH (17:38)
[2016-03-26] MEDS: PANTOPRAZOLE 40 MG TAB PO SCH (17:38)
[2016-03-26] MEDS: DOCUSATE-SENNA CONCENTRATE TAB PO SCH (20:45)
[2016-03-26] MEDS: Acetaminophen, Intravenous 1,000 MG/100 ML IVBOT IV SCH (20:45)
[2016-03-26] MEDS: RANITIDINE 150 MG TAB PO SCH (20:45)
[2016-03-26] MEDS: TEMAZEPAM 15 MG CAP PO PRN (20:46)
[2016-03-27] MEDS: Acetaminophen, Intravenous 1,000 MG/100 ML IVBOT IV SCH ×3 (02:17→14:27)
[2016-03-27] MEDS: CEFTRIAXONE 1 GM in D5W 100 ML IV SCH (02:17)
[2016-03-27] MEDS: D5W/NS/KCl 20 mEq 1,000 ML IV SCH ×3 (05:37→21:15)
[2016-03-27] MEDS: Cefazolin 2gm/50 ml D5W 2 GM/50 ML RTU IV SCH (05:37)
[2016-03-27] MEDS: SODIUM CHLORIDE 0.9% 3 ML FLUSH FLUSH SCH ×2 (05:38→17:16)
[2016-03-27] MEDS: GABAPENTIN 100 MG CAP PO SCH ×3 (05:39→21:16)
[2016-03-27] MEDS: PANTOPRAZOLE 40 MG TAB PO SCH ×2 (05:39→17:16)
--- NOTE | 2016-03-27 07:15 | PCM.ORTHBL ---
- Subjective Post Op Day: 1 Daily Assessment - Patient: Reports: Awake Alert Oriented x4, Feels better, Pain is less, Tolerating Regular Diet, Afebrile, Other (Denies chest pain). Denies: Ambulating with Physical Therapist (To begin today), Shortness of breath , Nausea, Vomiting - Objective / Physical Exam Vital Signs: Temperature: 98.7 F (03/27/16 06:00) HR: 81 (03/27/16 06:00)RR: 18 (03/27/16 06: 00) BP: 102/51 (03/27/16 06:00)Pulse Ox: 95 (03/27/16 06:00) General: Alert, Oriented x3, Cooperative, No acute distress, Well appearing Musculoskeletal / Extremities: 2 plus Dorsalis Pedis Pulse, Dressing Clean/Dry/ Intact. negative: Tenderness (no calf tenderness) Neurological: Positive Sensation First Dorsal Web Space, Sensation to light touch intact, Extensor Hallicus Longus Intact, Flexor Hallicus Longus Intact, Dorsiflexion Intact, Plantarflexion Intact Laboratory/Diagnostics Reviewed: 03/27/16 07:00 - Assessment and Plan (1) Intertrochanteric fracture of right hip Acute S72.141A - DISPLACED INTERTROCHANTERIC FRACTURE OF RIGHT FEMUR, INIT Present on Admission: Yes initial encounter closed S72.141A - Displaced intertrochanteric fracture of right femur, initial encounter for closed fracture Plan: POD#1 s/p IM nail right hip PT/OT/TTWB TEDS/SCDS/Lovenox 40mg SQ QD for 14 days post-op for DVT prophylaxis Continue pain management D/C planning for SNF. Will plan for follow-up in office at 4 weeks post-op.
[2016-03-27 07:21] LABS: MPV 7.5 fL (7.4-10.4)
[2016-03-27] MEDS: ENOXAPARIN 40 MG/0.4 ML PFS SQ SCH (07:47)
[2016-03-27] MEDS: ATENOLOL 25 MG TAB PO SCH (07:48)
[2016-03-27 08:12] LABS: BLOOD UREA NITROGEN 15 MG/DL (7-17); CALCIUM 7.8 MG/DL (8.4-10.2); CALCULATED OSMOLALITY 268 MOs/Kg (270-290); CHLORIDE 105 mEq/L (98-107); GLUCOSE 112 MG/DL (70-99); SODIUM LEVEL 138 mEq/L (137-146)
--- NOTE | 2016-03-27 13:45 | GENMEDPROG ---
Chief Complaint: Hip fracture, UTI, elevated LFTs, hip pain, DJD, mild dementia Subjective Note: patient reports some discomfort in leg, but not severe Notes Reviewed: Yes Events from last night noted and discussed with Clinical Staff Current Medication List: Reviewed Currently: Reports: Yvette PT/OT - Physical Examination Vital Signs and I&O: Last Vital Signs Temp 98.3 F 03/27/16 09:43 Pulse 90 03/27/16 09:43 Resp 18 03/27/16 09:43 BP 103/56 L 03/27/16 09:43 Pulse Ox 94 03/27/16 09:43 Oxygen Pulse Oxygen Saturation 94 O2 Device Nasal Cannula Oxygen Flow Rate 1 Fraction of Inspired Oxygen ( FIO2) Intake & Output 03/24/16 03/25/16 03/26/16 03/27/16 23:59 23:59 23:59 23:59 Intake Total 756 2125 Output Total 2250 600 Balance -1494 1525 Patient's weight 61.144 kg 62.188 kg General: Alert, Oriented x3, Cooperative, No acute distress, Well appearing HEENT: Normal, PERRLA, EOMI, Anicteric Sclera, Mucous membr. moist/pink Neck: Full range of motion, Normal Trachea alignment, Normal inspection, No Masses palpable Lymphatics: Normal Respiratory: Normal - CTA Cardiovascular: Regular rate and rhythm, Normal S1, Normal S2, Good Pedal Pulses. negative: LE Edema GI: Normal bowel sounds, Soft, Non tender Extremities/Musculoskeletal: Normal pulses Skin: Warm,Dry and Intact, No rashes Neurological: Normal speech, Normal tone, Cranial nerves 3-12 NL Psych/Mental Status: Appropriate, Normal Affect, Cooperative - Assessment (1) Intertrochanteric fracture of right hip Acute S72.141A - DISPLACED INTERTROCHANTERIC FRACTURE OF RIGHT FEMUR, INIT Qualifiers: Encounter type: initial encounter Fracture type: closed Qualified Code(s) : S72.141A - Displaced intertrochanteric fracture of right femur, initial encounter for closed fracture Comment/Plan: Surgical management per Orthopedic surgeon. s/p ORIF of R hip fracture, doing well. Continue with PT. (2) Acute cystitis with hematuria Acute N30.01 - ACUTE CYSTITIS WITH HEMATURIA Comment/Plan: URINE Cultures + E. coli, continue IV ceftriaxone. (3) Anemia Acute D64.9 - ANEMIA, UNSPECIFIED Qualifiers: Anemia type: other cause Other causes of anemia: acute posthemorrhagic Qualified Code(s): D62 - Acute posthemorrhagic anemia Comment/Plan: Continue to follow, transfuse if needed. Probably due to blood loss from fracture and anticoagulation. (4) Elevated LFTs Acute R94.5 - ABNORMAL RESULTS OF LIVER FUNCTION STUDIES Comment/Plan: No abdominal pain or abdominal symptoms. Plan: Consider recheck of labs in a few days. (5) Right hip pain Acute M25.551 - PAIN IN RIGHT HIP Comment/Plan: Plan: IV dilaudid. Case Care Discussed with: Family, Nursing Staff Education/Counseling Given To: Patient, Family Member Education/Counseling Given Regarding: Diagnosis, Treatment, Prognosis Total Time: 25 min Critical Care: No Couseling Time (>50% in counseling/coordination): No Code: 91939 (12+)
[2016-03-27] MEDS: CALCIUM CARBONATE + VITAMIN D 500 MG TAB PO SCH ×2 (14:26→17:17)
[2016-03-27] MEDS: [UNRECOGNIZED DRUG - OTHER] PO SCH (14:27)
[2016-03-27] MEDS: VITAMINS, MULTIPLE CAP PO SCH (14:27)
[2016-03-27] MEDS: OXYCODONE HCL 5 MG TABLET PO PRN ×2 (14:30→21:15)
[2016-03-27] MEDS: DOCUSATE-SENNA CONCENTRATE TAB PO SCH (21:16)
[2016-03-27] MEDS: RANITIDINE 150 MG TAB PO SCH (21:16)
[2016-03-28] MEDS: CEFTRIAXONE 1 GM in D5W 100 ML IV SCH (00:57)
[2016-03-28] MEDS: TEMAZEPAM 15 MG CAP PO PRN ×2 (01:01→20:45)
[2016-03-28] MEDS: GABAPENTIN 100 MG CAP PO SCH ×3 (05:30→20:45)
[2016-03-28] MEDS: PANTOPRAZOLE 40 MG TAB PO SCH ×2 (05:30→17:34)
[2016-03-28] MEDS: SODIUM CHLORIDE 0.9% 3 ML FLUSH FLUSH SCH ×2 (05:31→17:35)
[2016-03-28] MEDS: D5W/NS/KCl 20 mEq 1,000 ML IV SCH ×2 (05:31→14:16)
--- NOTE | 2016-03-28 06:34 | PCM.ORTHBL ---
- Subjective Post Op Day: 2 Daily Assessment - Patient: Reports: No new complaints, Awake Alert Oriented x4 , Still having pain, Pain is less, Tolerating Regular Diet, Afebrile, Ambulating with Physical Therapist. Denies: Shortness of breath, Nausea, Vomiting - Objective / Physical Exam Vital Signs: Temperature: 99.4 F (03/27/16 22:00) HR: 101 (03/27/16 22:00)RR: 18 (03/27/16 22 :00) BP: 137/66 (03/27/16 22:00)Pulse Ox: 100 (03/27/16 22:00) Musculoskeletal / Extremities: 2 plus Dorsalis Pedis Pulse, Dressing Clean/Dry/ Intact. negative: Tenderness (no calf tenderness) Neurological: Positive Sensation First Dorsal Web Space, Sensation to light touch intact, Extensor Hallicus Longus Intact, Flexor Hallicus Longus Intact, Dorsiflexion Intact, Plantarflexion Intact - Assessment and Plan (1) Intertrochanteric fracture of right hip Acute S72.141A - DISPLACED INTERTROCHANTERIC FRACTURE OF RIGHT FEMUR, INIT Present on Admission: Yes initial encounter closed S72.141A - Displaced intertrochanteric fracture of right femur, initial encounter for closed fracture Plan: POD#2 s/p IM nail right hip PT/OT/TTWB TEDS/SCDS/Lovenox SQ QD for 14 days post-op for DVT prophylaxis Continue pain management D/c plan for SNF
--- NOTE | 2016-03-28 07:02 | PCM.DCS92 ---
- Final/Secondary Discharge Diagnosis (1) Intertrochanteric fracture of right hip Acute S72.141A - DISPLACED INTERTROCHANTERIC FRACTURE OF RIGHT FEMUR, INIT Present on Admission: Yes initial encounter closed S72.141A - Displaced intertrochanteric fracture of right femur, initial encounter for closed fracture Discharge Disposition: [facility] Discharge Condition: Improved Cognitive Discharge Status: Unimpaired Fuctional Discharge Status: Walker Assistance, Ambulatory Dysfunction, Post-op Weakness Physician Follow up/Referrals: Wellington Sanchez MD [Primary Care Provider] - One Week Félix Soliz DO [Staff Physician] - One Month New Prescriptions: Alprazolam [Xanax] 1 mg PO HS PRN #30 tablet PRN Reason: SLEEP,ANXIETY Cephalexin Monohydrate [Keflex] 500 mg PO Q8H #30 cap Enoxaparin Sodium [Lovenox] 40 mg SQ DAILY #12 each Fluticasone Propionate [Flonase Nasal Graham] 1 spray SHERRY BID #1 each Oxycodone Immediate Release [Oxycodone Immediate Release (OxyIR)] 5 mg PO Q4H PRN #40 tab PRN Reason: Pain Vitamins, Multiple [Unicap] 1 cap PO DAILY@1200 #100 capsule Diet at Discharge: As Tolerated, Regular Activity: Limited (TTWB), No Heavy Lifting, No Driving Call Office For: Worsening Symptoms, Wound is Draining Pus, Fever over 101 F, Fever over 100.5, Wound is Painful, Wound is Red, Weight Gain (see below), Pain Uncontrolled By Meds, Other (See Details) Discontinue use of:: Alcohol, All Illegal Substances, All Types of Tobacco - DC Summary Notes Hospital Course Note:: Discharge summary on patient named GIANNA VENTURA admitted to [facility] on 03/26/16 by Tino Lester MD. Date of discharge is [03/29/16]. Afebrile. Hospital course and surgery uneventful. Progressing with PT. TTWB RLE. Continue pain management. Lovenox 40mg SQ QD for 14 days post-op for DVT prophylaxis. Daily dry dressing changes as needed. To follow-up with Dr. Soliz 4 weeks post-op or earlier as needed. Discharge to SNF. Wound Care Surgical Site: Yes Site Description (if applicable): right hip May Shower Starting:: upon discharge Dressing/Site Care (if applicable): daily dry dressing changes as needed Medical Equipment (Order must still be written on paper): Walker Remove Transdermal Scopalamine patch if present: YES Medication Instructions: Take Stool Softener Continue Ice Packs/Ice Machine to Operative Area: Yes Activity as Tolerated: No Weight Bearing: Touch Down/Toe Touch Current Dressing: Tegaderm Dressing Care: Keep Wound Clean & Dry, Shower with Tegaderm Dsg, No Tub Baths, Change Dressing Daily (as needed) - Physical Exam Vital Signs: Initial Vitals Temperature 98.1 F 03/25/16 22:10 Pulse Rate 83 03/25/16 22:10 Respiratory Rate 18 03/25/16 22:10 Blood Pressure 131/68 03/25/16 22:10 Pulse Oxygen Saturation 95 03/25/16 22:10 Constitutional: No apparent distress, Alert, Well appearing Oriented to: Time, Person, Place - HEENT Head: Normal - Musculoskeletal Extremities: Pedal Pulse, Other (dressing clean, dry, intact). negative: Calf Tenderness
[2016-03-28 07:18] LABS: MPV 7.7 fL (7.4-10.4)
[2016-03-28] MEDS: ENOXAPARIN 40 MG/0.4 ML PFS SQ SCH (08:21)
[2016-03-28] MEDS: ATENOLOL 25 MG TAB PO SCH (08:21)
[2016-03-28] MEDS: OXYCODONE HCL 5 MG TABLET PO PRN ×2 (08:26→20:45)
[2016-03-28] MEDS ORDERED: NS 500 ML IV ONE (09:43)
[2016-03-28] MEDS: VITAMINS, MULTIPLE CAP PO SCH (11:44)
[2016-03-28] MEDS: CALCIUM CARBONATE + VITAMIN D 500 MG TAB PO SCH ×2 (11:44→17:34)
[2016-03-28] MEDS ORDERED: FUROSEMIDE 40 MG/4 ML VIAL IV ONE (14:20)
[2016-03-28] MEDS: [UNRECOGNIZED DRUG - OTHER] PO SCH (14:24)
--- NOTE | 2016-03-28 19:43 | GENMEDPROG ---
Chief Complaint: R HIP FX, UTI, ANEMIA, HIP PAIN, ELEV LFTs Currently: Reports: Yvette PT/OT - Physical Examination Vital Signs and I&O: Last Vital Signs Temp 98.2 F 03/28/16 19:15 Pulse 83 03/28/16 19:15 Resp 18 03/28/16 19:15 BP 111/56 L 03/28/16 19:15 Pulse Ox 93 03/28/16 19:15 Oxygen Pulse Oxygen Saturation 93 O2 Device Room Air Oxygen Flow Rate 1 Fraction of Inspired Oxygen ( FIO2) Intake & Output 03/25/16 03/26/16 03/27/16 03/28/16 23:59 23:59 23:59 23:59 Intake Total 756 6805 1699 Output Total 2250 3555 2550 Balance -1494 950 -851 Patient's weight 61.144 kg 62.188 kg 63.276 kg General: Alert, Oriented x3, Cooperative, No acute distress, Well appearing HEENT: Normal, PERRLA, EOMI, Anicteric Sclera, Mucous membr. moist/pink Neck: Full range of motion, Normal Trachea alignment, Normal inspection, No Masses palpable Lymphatics: Normal Respiratory: Normal - CTA Cardiovascular: Regular rate and rhythm, Normal S1, Normal S2, Good Pedal Pulses. negative: LE Edema GI: Normal bowel sounds, Soft, Non tender Extremities/Musculoskeletal: Normal pulses Skin: Warm,Dry and Intact, No rashes Neurological: Normal speech, Normal tone, Cranial nerves 3-12 NL Psych/Mental Status: Appropriate, Normal Affect, Cooperative Lab/DI/Studies Reviewed: Laboratory Tests 03/28/16 06:42 WBC 10.0 Hgb 7.4 L D Hct 21.8 L MCV 101 H Plt Count 160 - Assessment (1) Intertrochanteric fracture of right hip Acute S72.141A - DISPLACED INTERTROCHANTERIC FRACTURE OF RIGHT FEMUR, INIT Qualifiers: Encounter type: initial encounter Fracture type: closed Qualified Code(s) : S72.141A - Displaced intertrochanteric fracture of right femur, initial encounter for closed fracture Comment/Plan: Surgical management per Orthopedic surgeon. s/p ORIF of R hip fracture, doing well. Continue with PT. (2) Acute cystitis with hematuria Acute N30.01 - ACUTE CYSTITIS WITH HEMATURIA Comment/Plan: URINE Cultures + E. coli, continue IV ceftriaxone. (3) Anemia Acute D64.9 - ANEMIA, UNSPECIFIED Qualifiers: Anemia type: other cause Other causes of anemia: acute posthemorrhagic Qualified Code(s): D62 - Acute posthemorrhagic anemia Comment/Plan: T & M 2 UNITS OF PRBCs AND TRANSFUSE TODAY. Continue to follow. Probably due to blood loss from fracture and anticoagulation. (4) Elevated LFTs Acute R94.5 - ABNORMAL RESULTS OF LIVER FUNCTION STUDIES Comment/Plan: No abdominal pain or abdominal symptoms. Plan: Consider recheck of labs in a few days. (5) Right hip pain Acute M25.551 - PAIN IN RIGHT HIP Comment/Plan: Plan: IV dilaudid.
[2016-03-28] MEDS: DOCUSATE-SENNA CONCENTRATE TAB PO SCH (20:45)
[2016-03-28] MEDS: RANITIDINE 150 MG TAB PO SCH (20:45)
[2016-03-29] MEDS: CEFTRIAXONE 1 GM in D5W 100 ML IV SCH (01:09)
[2016-03-29] MEDS: D5W/NS/KCl 20 mEq 1,000 ML IV SCH ×3 (05:08→13:59)
[2016-03-29] MEDS: PANTOPRAZOLE 40 MG TAB PO SCH ×2 (05:09→17:17)
[2016-03-29] MEDS: GABAPENTIN 100 MG CAP PO SCH ×3 (05:09→20:37)
[2016-03-29] MEDS: SODIUM CHLORIDE 0.9% 3 ML FLUSH FLUSH SCH ×3 (05:09→17:26)
--- NOTE | 2016-03-29 07:01 | PCM.ORTHBL ---
- Subjective Post Op Day: 3 Daily Assessment - Patient: Reports: No new complaints, Awake Alert Oriented x4 , Still having pain, Pain is less, Tolerating Regular Diet, Afebrile, Ambulating with Physical Therapist (difficulty with TTWB), Nausea (yesterday, none currently), Other (Some increased nasal congestion today. Denies chest pain). Denies: Difficulty Swallowing, Shortness of breath, Vomiting - Objective / Physical Exam Vital Signs: Temperature: 97.9 F (03/29/16 05:34) HR: 80 (03/29/16 05:34)RR: 18 (03/29/16 05: 34) BP: 114/60 (03/29/16 05:34)Pulse Ox: 94 (03/29/16 05:34) General: Alert, Oriented x3, Cooperative, No acute distress, Well appearing Musculoskeletal / Extremities: 2 plus Dorsalis Pedis Pulse, Dressing Clean/Dry/ Intact. negative: Tenderness (no calf tenderness) Neurological: Positive Sensation First Dorsal Web Space, Sensation to light touch intact, Extensor Hallicus Longus Intact, Flexor Hallicus Longus Intact, Dorsiflexion Intact, Plantarflexion Intact Laboratory/Diagnostics Reviewed: 03/29/16 06:44 03/27/16 07:00 - Assessment and Plan (1) Intertrochanteric fracture of right hip Acute S72.141A - DISPLACED INTERTROCHANTERIC FRACTURE OF RIGHT FEMUR, INIT Present on Admission: Yes initial encounter closed S72.141A - Displaced intertrochanteric fracture of right femur, initial encounter for closed fracture Plan: POD#3 s/p right hip IM nail PT/OT/TTWB TEDS/SCDS/Lovenox for 14 days post-op for DVT prophylaxis Continue pain management Patient received blood transfusion yesterday. H/H improved today D/C planning for rehab/SNF once medically stable.
[2016-03-29] MEDS ORDERED: Loratadine 10 MG TAB PO PRN (07:11)
[2016-03-29 07:22] LABS: MPV 7.8 fL (7.4-10.4)
[2016-03-29] MEDS: ENOXAPARIN 40 MG/0.4 ML PFS SQ SCH (08:40)
[2016-03-29] MEDS: ATENOLOL 25 MG TAB PO SCH (08:41)
--- NOTE | 2016-03-29 08:53 | PCM.DCS92 ---
- Final/Secondary Discharge Diagnosis (1) Intertrochanteric fracture of right hip Acute S72.141A - DISPLACED INTERTROCHANTERIC FRACTURE OF RIGHT FEMUR, INIT Present on Admission: Yes initial encounter closed S72.141A - Displaced intertrochanteric fracture of right femur, initial encounter for closed fracture Comment: Surgical management per Orthopedic surgeon. s/p ORIF of R hip fracture, doing well. Continue with PT. (2) Acute cystitis with hematuria Acute N30.01 - ACUTE CYSTITIS WITH HEMATURIA Present on Admission: Yes Comment: URINE Cultures + E. coli, has had 3 days of IV ceftriaxone. Will discharge on PO meds. (3) Anemia Acute D64.9 - ANEMIA, UNSPECIFIED Present on Admission: Yes other cause acute posthemorrhagic D62 - Acute posthemorrhagic anemia Comment: T & M 2 UNITS OF PRBCs AND TRANSFUSED 03/28. Hg=9.6 today. Probably due to blood loss from fracture and anticoagulation. (4) Elevated LFTs Acute R94.5 - ABNORMAL RESULTS OF LIVER FUNCTION STUDIES Present on Admission: Yes Comment: No abdominal pain or abdominal symptoms. Plan: Consider recheck of labs in a few days. (5) Right hip pain Acute M25.551 - PAIN IN RIGHT HIP Present on Admission: Yes Comment: Oxy-IR or Tylenol as needed for pain control. Discharge Disposition: Assisted Facility Discharge Condition: Improved Cognitive Discharge Status: Unimpaired Fuctional Discharge Status: Walker Assistance, Recent lower extremety joint replacement, Ambulatory Dysfunction Physician Follow up/Referrals: Wellington Sanchez MD [Primary Care Provider] - One Week Félix Soliz DO [Staff Physician] - One Month New Prescriptions: Alprazolam [Xanax] 1 mg PO HS PRN #30 tablet PRN Reason: SLEEP,ANXIETY Cephalexin Monohydrate [Keflex] 500 mg PO Q8H #30 cap Enoxaparin Sodium [Lovenox] 40 mg SQ DAILY #12 each Fluticasone Propionate [Flonase Nasal [place]] 1 spray SHERRY BID #1 each Oxycodone Immediate Release [Oxycodone Immediate Release (OxyIR)] 5 mg PO Q4H PRN #40 tab PRN Reason: Pain Vitamins, Multiple [Unicap] 1 cap PO DAILY@1200 #100 capsule O2 Device: Room Air Diet at Discharge: As Tolerated, Regular Activity: Limited (TTWB), No Heavy Lifting, No Driving Call Office For: Worsening Symptoms, Wound is Draining Pus, Fever over 101 F, Fever over 100.5, Wound is Painful, Wound is Red, Weight Gain (see below), Pain Uncontrolled By Meds, Other (See Details) Discontinue use of:: Alcohol, All Illegal Substances, All Types of Tobacco - DC Summary Notes Home Health Need / Assisted Services:: Patient requires a skilled evaluation for rehabilitation services. To include gait training, transfer training and stair training. Instruction on use of assistive devices for ambulation on all surfaces. Instruct and upgrade home exercise program and therapeutic exercises to increase strength and endurance.Passive and active ROM exercises for strengthening. Recommend home adaptation to facilitate safety. Safety, pain and medication management. Hospital Course Note:: Discharge summary on patient named GIANNA VENTURA admitted to [facility] on 03/26/16 by Tino Lester MD. Date of discharge is [03/29/16]. Mrs Ventura is an 81-year-old female who presented to [facility] ER after suffering a mechanical fall from a standing height onto her right hip. She noted immediate pain was unable to bear weight. She was found to have a comminuted right intertrochanteric hip fracture. She did not hit her head. Did not lose consciousness. Denies having any chest pain, shortness of breath or palpitations presently or prior to her fall. She denies having any pain elsewhere or other associated injury. No pre-existing hip pain prior to her fall. She does have a history of severe osteoarthritis of her knees She was admitted to the medical service for medical stabilization, orthopedics was consulted for repair of her fracture. She was taken to surgery the same day for open reduction and internal fixation of the right hip. Post-operatively , she has done well. She was anticoagulated with Lovenox due to her history of atrial fibrillation. This did cause an increase in post-operative bleeding, and her hemoglobin fell to 7.4 g/dL. She was transfused 2 units of packed red cells and her follow-up hemoglobin is 9.6 g/dL. She is tolerating her physical therapy and will be transferred to the care home center for continuation of her rehabilitation course. Follow-up will be scheduled with orthopedics in 1 -2 weeks. She will also follow-up with Dr. Sanchez after discharge from the SNF. SHE IS AWAITING INSURANCE APPROVAL PRIOR TO DISCHARGE TO SNF. Total Time: 40 min Code: 70375 (>30min.) Wound Care Surgical Site: Yes Site Description (if applicable): right hip May Shower Starting:: upon discharge Dressing/Site Care (if applicable): daily dry dressing changes as needed - Physical Exam Vital Signs: Last Vital Signs Temp 97.9 F 03/29/16 05:34 Pulse 92 03/29/16 08:39 Resp 18 03/29/16 05:34 BP 155/88 03/29/16 08:39 Pulse Ox 94 03/29/16 05:34 Oxygen Pulse Oxygen Saturation 94 O2 Device Room Air Oxygen Flow Rate 1 Fraction of Inspired Oxygen ( FIO2) Constitutional: No apparent distress Oriented to: Time, Person, Place - HEENT Head: Normal Eye: Normal Oropharynx: Normal Tympanic Membrane: Normal Nose: No Symptoms Reported - Respiratory/Cardiovascular Respiratory: Normal - CTA Cardiovascular: Normal - GI Auscultation: Normal Palpation: Normal Tenderness: Non tender Rectal Exam: Deferred - Musculoskeletal Extremities: Other (Patient's right hip is now anatomically aligned. She is tender to palpate laterally of the trochanter. Moderate edema and mild ecchymosis are present. Compartments are soft. Right knee is mildly swollen. She has mild tenderness to palpation about the distal thigh. She is able to fully plantar flex and dorsiflex her ankle distally. Subjective sensation to light touch intact L4-S1 distally bilateral lower extremities. Palpable dorsalis pedis and posterior tibial pulses bilaterally. Remaining bony prominences of bilateral upper and lower extremities were palpated without tenderness, step-off, or deformity. She does have some arthritic changes in the feet and ankles with varus rotation of the right foot.) - Integumentary Skin: Warm, Dry, Other (bruising R thigh) Lymphatics: Normal - Neurologic Memory Impaired: Normal Motor Function: Normal Cranial Nerve: Normal Cerebellar: Normal Mood Description: Appropriate Thought: Coherent Perception: Normal
[2016-03-29] MEDS ORDERED: FLUTICASONE PROPIONATE 16 GM BOT NAS SCH (10:00)
[2016-03-29] MEDS: FLUTICASONE PROPIONATE 16 GM BOT NAS SCH ×2 (10:39→20:37)
[2016-03-29] MEDS: CALCIUM CARBONATE + VITAMIN D 500 MG TAB PO SCH ×2 (11:05→17:17)
[2016-03-29] MEDS: VITAMINS, MULTIPLE CAP PO SCH (11:05)
[2016-03-29] MEDS: OXYCODONE HCL 5 MG TABLET PO PRN ×2 (13:57→20:44)
[2016-03-29] MEDS: [UNRECOGNIZED DRUG - OTHER] PO SCH (13:57)
[2016-03-29] MEDS ORDERED: SODIUM CHLORIDE 0.9% 3 ML FLUSH FLUSH PRN (17:18)
[2016-03-29] MEDS ORDERED: SODIUM CHLORIDE 0.9% 3 ML FLUSH FLUSH SCH (18:00)
[2016-03-29] MEDS: DOCUSATE-SENNA CONCENTRATE TAB PO SCH (20:38)
[2016-03-29] MEDS: RANITIDINE 150 MG TAB PO SCH (20:38)
[2016-03-30] MEDS: CEFTRIAXONE 1 GM in D5W 100 ML IV SCH (01:05)
[2016-03-30] MEDS: PANTOPRAZOLE 40 MG TAB PO SCH ×2 (05:16→17:12)
[2016-03-30] MEDS: GABAPENTIN 100 MG CAP PO SCH ×3 (05:16→20:52)
[2016-03-30] MEDS: SODIUM CHLORIDE 0.9% 3 ML FLUSH FLUSH SCH ×3 (05:17→17:12)
[2016-03-30 07:07] LABS: MPV 7.8 fL (7.4-10.4)
--- NOTE | 2016-03-30 07:20 | PCM.ORTHBL ---
- Subjective Post Op Day: 4 Daily Assessment - Patient: Reports: No new complaints, Awake Alert Oriented x4 , Feels better, Tolerating Regular Diet, Afebrile, Ambulating with Physical Therapist. Denies: Shortness of breath, Nausea, Vomiting - Objective / Physical Exam Vital Signs: Temperature: 99.4 F (03/30/16 04:58) HR: 82 (03/30/16 04:58)RR: 18 (03/30/16 04: 58) BP: 144/77 (03/30/16 04:58)Pulse Ox: 94 (03/30/16 04:58) Musculoskeletal / Extremities: 2 plus Dorsalis Pedis Pulse, Dressing Clean/Dry/ Intact. negative: Tenderness (no calf tenderness) Neurological: Positive Sensation First Dorsal Web Space, Sensation to light touch intact, Extensor Hallicus Longus Intact, Flexor Hallicus Longus Intact, Dorsiflexion Intact, Plantarflexion Intact Laboratory/Diagnostics Reviewed: 03/30/16 06:20 - Assessment and Plan (1) Intertrochanteric fracture of right hip Acute S72.141A - DISPLACED INTERTROCHANTERIC FRACTURE OF RIGHT FEMUR, INIT Present on Admission: Yes initial encounter closed S72.141A - Displaced intertrochanteric fracture of right femur, initial encounter for closed fracture Plan: s/p right IM nail PT/OT/TTWB TEDS/SCDS/Lovenox for 14 days post-op for DVT prophylaxis Continue pain management D/C plan for [place] once authorization received/approved.
[2016-03-30 07:36] LABS: BLOOD UREA NITROGEN 13 MG/DL (7-17); CALCIUM 8.2 MG/DL (8.4-10.2); CALCULATED OSMOLALITY 253 MOs/Kg (270-290); CHLORIDE 95 mEq/L (98-107); GLUCOSE 101 MG/DL (70-99); SODIUM LEVEL 131 mEq/L (137-146)
[2016-03-30] MEDS: ATENOLOL 25 MG TAB PO SCH (07:59)
[2016-03-30] MEDS: FLUTICASONE PROPIONATE 16 GM BOT NAS SCH ×2 (07:59→20:52)
[2016-03-30] MEDS: ENOXAPARIN 40 MG/0.4 ML PFS SQ SCH (07:59)
[2016-03-30] MEDS: OXYCODONE HCL 5 MG TABLET PO PRN ×2 (11:26→19:27)
[2016-03-30] MEDS: CALCIUM CARBONATE + VITAMIN D 500 MG TAB PO SCH ×2 (11:27→17:12)
[2016-03-30] MEDS: VITAMINS, MULTIPLE CAP PO SCH (11:27)
[2016-03-30] MEDS: [UNRECOGNIZED DRUG - OTHER] PO SCH (13:57)
--- NOTE | 2016-03-30 19:25 | GENMEDPROG ---
Chief Complaint: Status post hip fracture also treated for UTI Subjective Note: Patient has still not received approval for a bed at [facility]. She is getting up with physical therapy. She denies any new complaints Current Medication List: Reviewed Currently: Reports: Yvette PT/OT. Denies: Cough, STOREY, SOB, Nausea and Vomiting, Abdominal Pain, Fever/Chills DVT Prophylaxis: Yes - Physical Examination Vital Signs and I&O: Last Vital Signs Temp 98.9 F 03/30/16 16:50 Pulse 78 03/30/16 16:50 Resp 18 03/30/16 16:50 BP 125/77 03/30/16 16:50 Pulse Ox 91 03/30/16 16:50 Oxygen Pulse Oxygen Saturation 91 O2 Device Room Air Oxygen Flow Rate 1 Fraction of Inspired Oxygen ( FIO2) Intake & Output 03/27/16 03/28/16 03/29/16 03/30/16 23:59 23:59 23:59 23:59 Intake Total 2725 1699 2784 1472 Output Total 1775 3450 1800 1450 Balance 950 -1751 984 22 Patient's weight 62.188 kg 63.276 kg 66.31 kg 66.791 kg General: Alert, Oriented x3, Cooperative, No acute distress HEENT: Normal, Mucous membr. moist/pink Neck: Non-tender, Normal inspection, No Masses palpable Lymphatics: Normal Respiratory: Normal - CTA Cardiovascular: Regular rate and rhythm, No Gallops,Rubs/Murmurs, LE Edema ( Trace trace lower extremity edema) GI: Normal bowel sounds, Non tender, No hepatospenomegaly Extremities/Musculoskeletal: Normal pulses, Edema (Some edema on the affected leg) Skin: Warm,Dry and Intact Neurological: Normal speech Psych/Mental Status: Appropriate Lab/DI/Studies Reviewed: 03/30/16 06:20 03/30/16 06:20 - Assessment (1) Intertrochanteric fracture of right hip Acute S72.141A - DISPLACED INTERTROCHANTERIC FRACTURE OF RIGHT FEMUR, INIT Qualifiers: Encounter type: initial encounter Fracture type: closed Qualified Code(s) : S72.141A - Displaced intertrochanteric fracture of right femur, initial encounter for closed fracture Comment/Plan: Doing well. She is could continuing to wait for bed approval from her insurance company for [facility] (2) Acute cystitis with hematuria Acute N30.01 - ACUTE CYSTITIS WITH HEMATURIA Comment/Plan: Will continue IV ceftriaxone while she is an inpatient. Is on day 4 of antibiotics Will discharge on PO meds. (3) Elevated LFTs Acute R94.5 - ABNORMAL RESULTS OF LIVER FUNCTION STUDIES Comment/Plan: No abdominal pain or abdominal symptoms. Plan: Consider recheck of labs in a few days. (4) Anemia Acute D64.9 - ANEMIA, UNSPECIFIED Qualifiers: Anemia type: iron deficiency Comment/Plan: Anemia stable for now postop. Case Care Discussed with: Patient, Nursing Staff Education/Counseling Given To: Patient Education/Counseling Given Regarding: Diagnosis, Treatment Total Time: 30 minutes Critical Care: No Code: 09447 (6)
[2016-03-30] MEDS: DOCUSATE-SENNA CONCENTRATE TAB PO SCH (20:51)
[2016-03-30] MEDS: RANITIDINE 150 MG TAB PO SCH (20:51)
[2016-03-30] MEDS: ALPRAZOLAM 0.5 MG TAB PO PRN (20:52)
[2016-03-31] MEDS: CEFTRIAXONE 1 GM in D5W 100 ML IV SCH (02:04)
[2016-03-31] MEDS: PANTOPRAZOLE 40 MG TAB PO SCH ×2 (05:05→19:21)
[2016-03-31] MEDS: OXYCODONE HCL 5 MG TABLET PO PRN ×3 (05:05→22:01)
[2016-03-31] MEDS: GABAPENTIN 100 MG CAP PO SCH ×3 (05:05→19:56)
[2016-03-31] MEDS: SODIUM CHLORIDE 0.9% 3 ML FLUSH FLUSH SCH ×2 (05:05→19:21)
--- NOTE | 2016-03-31 08:21 | PCM.ORTHBL ---
- Subjective Post Op Day: 5 Daily Assessment - Patient: Reports: No new complaints, Awake Alert Oriented x4 , Feels better, Tolerating Regular Diet, Voiding without difficulty, Afebrile, Other (Denies chest pain). Denies: Difficulty Swallowing, Shortness of breath, Nausea, Vomiting - Objective / Physical Exam Vital Signs: Temperature: 98.6 F (03/31/16 04:52) HR: 79 (03/31/16 04:52)RR: 18 (03/31/16 04: 52) BP: 145/76 (03/31/16 04:52)Pulse Ox: 97 (03/31/16 04:52) General: Alert, Oriented x3, Cooperative, No acute distress, Well appearing Musculoskeletal / Extremities: 2 plus Dorsalis Pedis Pulse, Dressing Clean/Dry/ Intact. negative: Tenderness (no calf tenderness) Neurological: Positive Sensation First Dorsal Web Space, Sensation to light touch intact, Extensor Hallicus Longus Intact, Flexor Hallicus Longus Intact, Dorsiflexion Intact, Plantarflexion Intact - Assessment and Plan (1) Intertrochanteric fracture of right hip Acute S72.141A - DISPLACED INTERTROCHANTERIC FRACTURE OF RIGHT FEMUR, INIT Present on Admission: Yes initial encounter closed S72.141A - Displaced intertrochanteric fracture of right femur, initial encounter for closed fracture Plan: POD#5 s/p IM nail PT/OT/TTWB TEDS/SCDS/Lovenox 40mg SQ QD for 14 days post-op for DVT prophylaxis Continue pain management D/C plan for [place] once approved, awaiting authorization
[2016-03-31] MEDS: FLUTICASONE PROPIONATE 16 GM BOT NAS SCH ×2 (10:03→19:55)
[2016-03-31] MEDS: ENOXAPARIN 40 MG/0.4 ML PFS SQ SCH (10:03)
[2016-03-31] MEDS: CALCIUM CARBONATE + VITAMIN D 500 MG TAB PO SCH ×2 (10:04→19:20)
[2016-03-31] MEDS: VITAMINS, MULTIPLE CAP PO SCH (10:04)
[2016-03-31] MEDS: ATENOLOL 25 MG TAB PO SCH (10:04)
[2016-03-31] MEDS: [UNRECOGNIZED DRUG - OTHER] PO SCH (12:56)
--- NOTE | 2016-03-31 15:00 | GENMEDPROG ---
Chief Complaint: Status post hip fracture and repair. Subjective Note: The patient denies any complaint. She continues to work with physical therapy daily. She did get up to sit in the chair today. She denies any chest pain shortness of breath. She is currently in sure it's approval for a [facility] bed which is already available. Current Medication List: Reviewed Currently: Reports: Yvette PT/OT. Denies: Cough, STOREY, SOB, Nausea and Vomiting, Abdominal Pain, Fever/Chills DVT Prophylaxis: Yes - Physical Examination Vital Signs and I&O: Last Vital Signs Temp 97.8 F 03/31/16 14:39 Pulse 86 03/31/16 14:39 Resp 18 03/31/16 14:39 BP 123/58 L 03/31/16 14:39 Pulse Ox 94 03/31/16 14:39 Oxygen Pulse Oxygen Saturation 94 O2 Device Room Air Oxygen Flow Rate 1 Fraction of Inspired Oxygen ( FIO2) Intake & Output 03/28/16 03/29/16 03/30/16 03/31/16 23:59 23:59 23:59 23:59 Intake Total 1699 2784 1472 967 Output Total 3450 1800 1450 1650 Balance -1751 984 22 -683 Patient's weight 63.276 kg 66.31 kg 66.791 kg 67.188 kg General: Alert, Oriented x3, Cooperative, No acute distress, Well appearing HEENT: Mucous membr. moist/pink Neck: Full range of motion, Normal inspection Lymphatics: negative: Adenopathy Respiratory: Normal - CTA Cardiovascular: Regular rate and rhythm, No Gallops,Rubs/Murmurs. negative: LE Edema (Is wearing intermittent compression devices) GI: Normal bowel sounds, Soft, Non tender, No hepatospenomegaly Skin: Warm,Dry and Intact Neurological: Normal speech, Normal tone Psych/Mental Status: Appropriate, Normal Affect, Cooperative Lab/DI/Studies Reviewed: Intake & Output 03/28/16 03/29/16 03/30/16 03/31/16 23:59 23:59 23:59 23:59 Intake Total 1690 2784 1472 1207 Output Total 3450 1800 1450 2150 Balance -1751 984 22 943 Patient's weight 63.276 kg 66.31 kg 66.791 kg 67.188 kg - Assessment (1) Intertrochanteric fracture of right hip Acute S72.141A - DISPLACED INTERTROCHANTERIC FRACTURE OF RIGHT FEMUR, INIT Qualifiers: Encounter type: initial encounter Fracture type: closed Qualified Code(s) : S72.141A - Displaced intertrochanteric fracture of right femur, initial encounter for closed fracture Comment/Plan: Patient is doing well. She is continuing with physical therapy. A bed in a skilled facility is available however we are awaiting approval from her insurance before that bed can be taken. (2) Acute cystitis with hematuria Acute N30.01 - ACUTE CYSTITIS WITH HEMATURIA Comment/Plan: Has completed 5 days of IV antibiotics. Will discontinue Rocephin after today. (3) Elevated LFTs Acute R94.5 - ABNORMAL RESULTS OF LIVER FUNCTION STUDIES Comment/Plan: Will repeat labs. No GI complaints. (4) Anemia Acute D64.9 - ANEMIA, UNSPECIFIED Qualifiers: Anemia type: iron deficiency Comment/Plan: Anemia stable for now postop. Case Care Discussed with: Patient, Nursing Staff Education/Counseling Given To: Patient Education/Counseling Given Regarding: Diagnosis, Treatment Total Time: 30 minutes Code: 19945 (12+)
[2016-03-31] MEDS: RANITIDINE 150 MG TAB PO SCH (19:56)
[2016-03-31] MEDS: DOCUSATE-SENNA CONCENTRATE TAB PO SCH (19:56)
[2016-03-31] MEDS: ALPRAZOLAM 0.5 MG TAB PO PRN (22:01)
[2016-04-01] MEDS: SODIUM CHLORIDE 0.9% 3 ML FLUSH FLUSH SCH ×2 (05:46→17:39)
[2016-04-01] MEDS: GABAPENTIN 100 MG CAP PO SCH ×3 (05:47→20:53)
[2016-04-01] MEDS: PANTOPRAZOLE 40 MG TAB PO SCH ×2 (05:47→17:39)
--- NOTE | 2016-04-01 07:31 | PCM.ORTHBL ---
- Subjective Post Op Day: 6 Daily Assessment - Patient: Reports: No new complaints, Awake Alert Oriented x4 , Feels better, Tolerating Regular Diet, Afebrile, Ambulating with Physical Therapist, Other (Denies chest pain). Denies: Shortness of breath, Nausea, Vomiting - Objective / Physical Exam Vital Signs: Temperature: 98.2 F (04/01/16 05:40) HR: 98 (04/01/16 05:40)RR: 20 (04/01/16 05: 40) BP: 115/68 (04/01/16 05:40)Pulse Ox: 95 (04/01/16 05:40) General: Alert, Oriented x3, Cooperative, No acute distress, Well appearing Musculoskeletal / Extremities: 2 plus Dorsalis Pedis Pulse, Dressing Clean/Dry/ Intact. negative: Tenderness (no calf tenderness) Neurological: Positive Sensation First Dorsal Web Space, Sensation to light touch intact, Extensor Hallicus Longus Intact, Flexor Hallicus Longus Intact, Dorsiflexion Intact, Plantarflexion Intact Laboratory/Diagnostics Reviewed: 04/01/16 06:41 04/01/16 06:41 - Assessment and Plan (1) Intertrochanteric fracture of right hip Acute S72.141A - DISPLACED INTERTROCHANTERIC FRACTURE OF RIGHT FEMUR, INIT Present on Admission: Yes initial encounter closed S72.141A - Displaced intertrochanteric fracture of right femur, initial encounter for closed fracture Plan: s/p IM nail right hip PT/OT/TTWB TEDS/SCDS/Lovenox 40mg SQ QD for 14 days post-op Continue pain management Awaiting approval for SNF, bed is available
[2016-04-01 07:56] LABS: BLOOD UREA NITROGEN 20 MG/DL (7-17); CALC CORRECTED 9.7 MG/DL (8.4-10.2); CALCIUM 8.1 MG/DL (8.4-10.2); CALCULATED OSMOLALITY 256 MOs/Kg (270-290); CHLORIDE 94 mEq/L (98-107); GLUCOSE 90 MG/DL (70-99); SODIUM LEVEL 131 mEq/L (137-146); TOTAL PROTEIN 4.8 G/DL (6.3-8.2)
[2016-04-01] MEDS: ENOXAPARIN 40 MG/0.4 ML PFS SQ SCH (08:07)
[2016-04-01] MEDS: FLUTICASONE PROPIONATE 16 GM BOT NAS SCH ×2 (08:07→20:53)
[2016-04-01] MEDS: CALCIUM CARBONATE + VITAMIN D 500 MG TAB PO SCH ×2 (08:08→17:39)
[2016-04-01] MEDS: VITAMINS, MULTIPLE CAP PO SCH (08:08)
[2016-04-01] MEDS: ATENOLOL 25 MG TAB PO SCH (08:08)
[2016-04-01] MEDS ORDERED: Non-Formulary Medication ITEM (Omeprazole [Omeprazole] 20 MG) PO SCH (09:00)
--- NOTE | 2016-04-01 09:00 | GENMEDPROG ---
Subjective Note: Patient's only complaint today is some mild neck pain in generalized difficulty getting comfortable in bed. She states she has had her gallbladder removed in the past. She denies nausea vomiting abdominal pain. LFTs are noted to be elevated above what they were on admission. She denies taking any statin recently Current Medication List: Reviewed Currently: Reports: Yvette PT/OT. Denies: Cough, STOREY, SOB, Nausea and Vomiting, Abdominal Pain, Fever/Chills DVT Prophylaxis: Yes - Physical Examination Vital Signs and I&O: Last Vital Signs Temp 98.2 F 04/01/16 05:40 Pulse 98 04/01/16 05:40 Resp 20 04/01/16 05:40 BP 115/68 04/01/16 05:40 Pulse Ox 95 04/01/16 05:40 Oxygen Pulse Oxygen Saturation 95 O2 Device Room Air Oxygen Flow Rate 1 Fraction of Inspired Oxygen ( FIO2) Intake & Output 03/29/16 03/30/16 03/31/16 04/01/16 23:59 23:59 23:59 23:59 Intake Total 2784 1472 1207 360 Output Total 1800 1450 2450 600 Balance 984 22 -1243 -240 Patient's weight 66.31 kg 66.791 kg 67.188 kg 67.358 kg General: Alert, Oriented x3, Cooperative, No acute distress, Well appearing HEENT: Mucous membr. moist/pink Neck: Non-tender, No Masses palpable, Muscle spasm (Mild) Lymphatics: negative: Adenopathy Respiratory: Normal - CTA Cardiovascular: Regular rate and rhythm, No Gallops,Rubs/Murmurs GI: Normal bowel sounds, Soft, Non tender, No hepatospenomegaly Extremities/Musculoskeletal: Normal pulses Skin: Warm,Dry and Intact Neurological: Normal speech Psych/Mental Status: Appropriate, Normal Affect Lab/DI/Studies Reviewed: Laboratory Results - last 24 hr 04/01/16 04/01/16 06:41 06:41 Hgb 9.0 L Hct 26.8 L Sodium 131 L Potassium 3.7 Chloride 94 L Carbon Dioxide 32 Anion Gap 9 BUN 20 H Creatinine 0.70 Estimated GFR (MDRD) > 60 Glucose 90 Calculated Osmolality 256 L Calcium 8.1 L Corrected Calcium 9.7 Total Bilirubin 1.0 AST 124 H ALT 129 H Alkaline Phosphatase 190 H Total Protein 4.8 L Albumin 2.4 L - Assessment (1) Intertrochanteric fracture of right hip Acute S72.141A - DISPLACED INTERTROCHANTERIC FRACTURE OF RIGHT FEMUR, INIT Qualifiers: Encounter type: initial encounter Fracture type: closed Qualified Code(s) : S72.141A - Displaced intertrochanteric fracture of right femur, initial encounter for closed fracture Comment/Plan: Patient is doing well. She is continuing with physical therapy. A bed in a skilled facility is available however we are awaiting approval from her insurance before that bed can be taken. (2) Acute cystitis with hematuria Acute N30.01 - ACUTE CYSTITIS WITH HEMATURIA Comment/Plan: Has completed 5 days of IV antibiotics for E coli UTI. Will discontinue Rocephin after today. (3) Elevated LFTs Acute R94.5 - ABNORMAL RESULTS OF LIVER FUNCTION STUDIES Comment/Plan: No GI complaints. Hold Tylenol. Hepatitis panel has been ordered. Ultrasound of her liver. If we are unable to do her liver ultrasound prior to discharge this can certainly be done as an outpatient (4) Anemia Acute D64.9 - ANEMIA, UNSPECIFIED Qualifiers: Anemia type: iron deficiency Comment/Plan: Anemia stable for now postop. Case Care Discussed with: Patient Education/Counseling Given To: Patient Education/Counseling Given Regarding: Diagnosis, Treatment Total Time: 30 minutes Critical Care: No Couseling Time (>50% in counseling/coordination): No Code: 86091 (12+)
[2016-04-01] MEDS: [UNRECOGNIZED DRUG - OTHER] PO SCH (15:07)
--- NOTE | 2016-04-01 17:55 | DIRPT ---
CLINICAL DATA: Elevated liver function tests, abdominal pain EXAM: US ABDOMEN LIMITED - RIGHT UPPER QUADRANT COMPARISON: None. FINDINGS: Gallbladder: Surgically absent Common bile duct: Diameter: 1 cm Liver: No focal lesion identified. Within normal limits in parenchymal echogenicity. IMPRESSION: Common bile duct dilatation likely related to status post prior cholecystectomy. No other significant findings. Electronically Signed By: Gabriel Rogers M.D. On: 04/01/2016 17:53
[2016-04-01] MEDS: ALPRAZOLAM 0.5 MG TAB PO PRN (20:52)
[2016-04-01] MEDS: OXYCODONE HCL 5 MG TABLET PO PRN (20:52)
[2016-04-01] MEDS: DOCUSATE-SENNA CONCENTRATE TAB PO SCH (20:53)
[2016-04-01] MEDS: RANITIDINE 150 MG TAB PO SCH (20:53)
[2016-04-02] MEDS: SODIUM CHLORIDE 0.9% 3 ML FLUSH FLUSH SCH ×2 (05:36→17:31)
[2016-04-02] MEDS: PANTOPRAZOLE 40 MG TAB PO SCH (05:37)
[2016-04-02] MEDS: GABAPENTIN 100 MG CAP PO SCH ×3 (05:37→20:36)
--- NOTE | 2016-04-02 06:51 | PCM.ORTHBL ---
- Subjective Post Op Day: 7 Daily Assessment - Patient: Reports: No new complaints, Awake Alert Oriented x4 , Pain is less, Tolerating Regular Diet, Voiding without difficulty, Afebrile, Ambulating with Physical Therapist. Denies: Shortness of breath, Nausea, Vomiting - Objective / Physical Exam Vital Signs: Temperature: 98.3 F (04/02/16 05:45) HR: 79 (04/02/16 05:45)RR: 20 (04/02/16 05: 45) BP: 128/78 (04/02/16 05:45)Pulse Ox: 94 (04/02/16 05:45) General: Alert, Oriented x3, Cooperative, No acute distress, Well appearing Musculoskeletal / Extremities: 2 plus Dorsalis Pedis Pulse, Dressing Clean/Dry/ Intact. negative: Tenderness (no significant calf tenderness) Neurological: Positive Sensation First Dorsal Web Space, Sensation to light touch intact, Extensor Hallicus Longus Intact, Flexor Hallicus Longus Intact, Dorsiflexion Intact, Plantarflexion Intact Skin: Other (She does have 2 blisters present along the edge of her bandages.) - Assessment and Plan (1) Intertrochanteric fracture of right hip Acute S72.141A - DISPLACED INTERTROCHANTERIC FRACTURE OF RIGHT FEMUR, INIT Present on Admission: Yes initial encounter closed S72.141A - Displaced intertrochanteric fracture of right femur, initial encounter for closed fracture Plan: s/p IM nail right hip PT/OT/TTWB TEDS/SCDS/Lovenox for DVT prophylaxis Continue pain management D/c plan for SNF/Rehab once approved. Plan to follow-up in office 4 weeks post- op or earlier as needed
[2016-04-02] MEDS: FLUTICASONE PROPIONATE 16 GM BOT NAS SCH ×2 (08:26→20:37)
[2016-04-02] MEDS: ENOXAPARIN 40 MG/0.4 ML PFS SQ SCH (08:27)
[2016-04-02] MEDS: ATENOLOL 25 MG TAB PO SCH (08:31)
[2016-04-02] MEDS: CALCIUM CARBONATE + VITAMIN D 500 MG TAB PO SCH ×2 (11:29→17:30)
[2016-04-02] MEDS: VITAMINS, MULTIPLE CAP PO SCH (11:30)
[2016-04-02] MEDS: [UNRECOGNIZED DRUG - OTHER] PO SCH (13:40)
--- NOTE | 2016-04-02 15:42 | DIRPT ---
CLINICAL DATA: Right calf pain. Recent ORIF of right hip fracture on 03/26/2016. EXAM: RIGHT LOWER EXTREMITY VENOUS DOPPLER ULTRASOUND TECHNIQUE: Dennis-scale sonography with graded compression, as well as color Doppler and duplex ultrasound were performed to evaluate the lower extremity deep venous systems from the level of the common femoral vein and including the common femoral, femoral, profunda femoral, popliteal and calf veins including the posterior tibial, peroneal and gastrocnemius veins when visible. The superficial great saphenous vein was also interrogated. Spectral Doppler was utilized to evaluate flow at rest and with distal augmentation maneuvers in the common femoral, femoral and popliteal veins. COMPARISON: None. FINDINGS: Contralateral Common Femoral Vein: Respiratory phasicity is normal and symmetric with the symptomatic side. No evidence of thrombus. Normal compressibility. Common Femoral Vein: No evidence of thrombus. Normal compressibility, respiratory phasicity and response to augmentation. Saphenofemoral Junction: No evidence of thrombus. Normal compressibility and flow on color Doppler imaging. Profunda Femoral Vein: No evidence of thrombus. Normal compressibility and flow on color Doppler imaging. Femoral Vein: No evidence of thrombus. Normal compressibility, respiratory phasicity and response to augmentation. Popliteal Vein: No evidence of thrombus. Normal compressibility, respiratory phasicity and response to augmentation. Calf Veins: No evidence of thrombus. Normal compressibility and flow on color Doppler imaging. Superficial Great Saphenous Vein: No evidence of thrombus. Normal compressibility and flow on color Doppler imaging. Venous Reflux: None. Other Findings: No evidence of superficial thrombophlebitis or abnormal fluid collection. IMPRESSION: No evidence of right lower extremity deep venous thrombosis. Electronically Signed By: Steven Savage M.D. On: 04/02/2016 15:40
--- NOTE | 2016-04-02 16:10 | GENMEDPROG ---
Subjective Note: 81-year-old female admitted to our facility with a right hip fracture. She is complaining of pain in her right lower extremity. She appears to have some ecchymoses associated with use of the SCDs. She is awaiting approval to go to [place]. Notes Reviewed: Yes Events from last night noted and discussed with Clinical Staff Current Medication List: Reviewed Currently: Reports: Yvette PT/OT. Denies: Cough, STOREY, SOB, Nausea and Vomiting, Abdominal Pain, Fever/Chills DVT Prophylaxis: Yes - Physical Examination Vital Signs and I&O: Last Vital Signs Temp 98.4 F 04/02/16 13:52 Pulse 78 04/02/16 13:52 Resp 18 04/02/16 13:52 BP 134/72 04/02/16 13:52 Pulse Ox 92 04/02/16 13:52 Oxygen Pulse Oxygen Saturation 92 O2 Device Room Air Oxygen Flow Rate 1 Fraction of Inspired Oxygen ( FIO2) Intake & Output 03/30/16 03/31/16 04/01/16 04/02/16 23:59 23:59 23:59 23:59 Intake Total 1472 1207 610 610 Output Total 1450 2450 600 800 Balance 22 -1243 10 -190 Patient's weight 66.791 kg 67.188 kg 67.358 kg 66.877 kg General: Alert, Oriented x3, Cooperative, No acute distress, Well appearing HEENT: Normal (Normocephalic, atraumatic;EOMI.Sclera white, Nares patent, without discharge or bleeding. No oropharyngeal lesions or erythema. Mucous membranes are dry.) Neck: Non-tender, Full range of motion, Normal Trachea alignment, Normal inspection (No cervical lymphadenopathy. No supraclavicular lymphadenopathy.), No Masses palpable, Supple Lymphatics: Normal (No lymph node swelling or pain.) Respiratory: Normal - CTA (Clear to auscultation bilaterally. No wheezing, rales , rhonchi. Chest wall movements are symmetric. No use of accessory muscles to breathe.) Cardiovascular: Regular rate and rhythm (No bradycardia or tachycardia), Normal S1, No Gallops,Rubs/Murmurs, Normal S2, Good Pedal Pulses (DP pulses 2+ bilaterally) GI: Normal bowel sounds (normal active sounds), Soft (non-distended), Non tender , No hepatospenomegaly, No masses Extremities/Musculoskeletal: Normal pulses (DP pulses 2+ bilaterally) Skin: Other (She does have 2 blisters present along the edge of her bandages.) Neurological: Strength at 5/5 X4 ext (Motor 5/5 throughout.), Normal tone, Cranial nerves 3-12 NL ( 2-12 grossly intact.) Psych/Mental Status: Appropriate, Normal Affect Lab/DI/Studies Reviewed: EXAM: RIGHT LOWER EXTREMITY VENOUS DOPPLER ULTRASOUND TECHNIQUE: Dennis-scale sonography with graded compression, as well as color Doppler and duplex ultrasound were performed to evaluate the lower extremity deep venous systems from the level of the common femoral vein and including the common femoral, femoral, profunda femoral, popliteal and calf veins including the posterior tibial, peroneal and gastrocnemius veins when visible. The superficial great saphenous vein was also interrogated. Spectral Doppler was utilized to evaluate flow at rest and with distal augmentation maneuvers in the common femoral, femoral and popliteal veins. COMPARISON: None. FINDINGS: Contralateral Common Femoral Vein: Respiratory phasicity is normal and symmetric with the symptomatic side. No evidence of thrombus. Normal compressibility. Common Femoral Vein: No evidence of thrombus. Normal compressibility, respiratory phasicity and response to augmentation. Saphenofemoral Junction: No evidence of thrombus. Normal compressibility and flow on color Doppler imaging. Profunda Femoral Vein: No evidence of thrombus. Normal compressibility and flow on color Doppler imaging. Femoral Vein: No evidence of thrombus. Normal compressibility, respiratory phasicity and response to augmentation. Popliteal Vein: No evidence of thrombus. Normal compressibility, respiratory phasicity and response to augmentation. Calf Veins: No evidence of thrombus. Normal compressibility and flow on color Doppler imaging. Superficial Great Saphenous Vein: No evidence of thrombus. Normal compressibility and flow on color Doppler imaging. Venous Reflux: None. Other Findings: No evidence of superficial thrombophlebitis or abnormal fluid collection. IMPRESSION: No evidence of right lower extremity deep venous thrombosis. Electronically Signed By: Steven Savage M.D. On: 04/02/2016 15:40 - Assessment (1) Intertrochanteric fracture of right hip Acute S72.141A - DISPLACED INTERTROCHANTERIC FRACTURE OF RIGHT FEMUR, INIT Qualifiers: Encounter type: initial encounter Fracture type: closed Qualified Code(s) : S72.141A - Displaced intertrochanteric fracture of right femur, initial encounter for closed fracture Comment/Plan: Patient is doing well. She is continuing with physical therapy. A bed in a skilled facility is available however we are awaiting approval from her insurance before that bed can be taken. (2) Elevated LFTs Acute R94.5 - ABNORMAL RESULTS OF LIVER FUNCTION STUDIES Comment/Plan: It appears that patient has a bed having a medication reaction to the Protonix. Protonix is known to increase LFTs. Will stop Protonix and monitor closely. Gallbladder ultrasound on remark (3) Anemia Acute D64.9 - ANEMIA, UNSPECIFIED Qualifiers: Anemia type: iron deficiency Comment/Plan: Anemia stable for now postop. (4) Acute cystitis with hematuria Resolved N30.01 - ACUTE CYSTITIS WITH HEMATURIA Comment/Plan: Has completed 5 days of IV antibiotics for E coli UTI. Will discontinue Rocephin after today. - Plan To detention facility. Case Care Discussed with: Patient, Nursing Staff Education/Counseling Given To: Patient Education/Counseling Given Regarding: Diagnosis, Treatment, Prognosis Total Time: 35 minutes Critical Care: No Couseling Time (>50% in counseling/coordination): No
[2016-04-02] MEDS: OXYCODONE HCL 5 MG TABLET PO PRN (20:36)
[2016-04-02] MEDS: ALPRAZOLAM 0.5 MG TAB PO PRN (20:36)
[2016-04-02] MEDS: RANITIDINE 150 MG TAB PO SCH (20:36)
[2016-04-02] MEDS: DOCUSATE-SENNA CONCENTRATE TAB PO SCH (20:36)
[2016-04-02] MEDS ORDERED: CEPHALEXIN 250 MG CAP PO SCH (21:00)
[2016-04-03] MEDS: GABAPENTIN 100 MG CAP PO SCH ×2 (04:59→13:48)
[2016-04-03] MEDS: SODIUM CHLORIDE 0.9% 3 ML FLUSH FLUSH SCH (05:00)
[2016-04-03] MEDS: FLUTICASONE PROPIONATE 16 GM BOT NAS SCH (09:14)
[2016-04-03] MEDS: CALCIUM CARBONATE + VITAMIN D 500 MG TAB PO SCH (09:14)
[2016-04-03] MEDS: ATENOLOL 25 MG TAB PO SCH (09:14)
[2016-04-03] MEDS: ENOXAPARIN 40 MG/0.4 ML PFS SQ SCH (09:14)
[2016-04-03] MEDS: VITAMINS, MULTIPLE CAP PO SCH (09:14)
--- NOTE | 2016-04-03 09:24 | PCM.ORTHBL ---
- Subjective Post Op Day: 8 Daily Assessment - Patient: Reports: No new complaints, Awake Alert Oriented x4 , Pain is less, Tolerating Regular Diet, Voiding without difficulty (although she does report some urgency today), Afebrile, Ambulating with Physical Therapist. Denies: Shortness of breath, Nausea, Vomiting - Objective / Physical Exam Vital Signs: Temperature: 97.9 F (04/03/16 06:00) HR: 76 (04/03/16 06:00)RR: 18 (04/03/16 06: 00) BP: 115/66 (04/03/16 06:00)Pulse Ox: 93 (04/03/16 06:00) General: Alert, Oriented x3, Cooperative, No acute distress, Well appearing Musculoskeletal / Extremities: 2 plus Dorsalis Pedis Pulse, Dressing Clean/Dry/ Intact (2 small blisters along dressings). negative: Tenderness (no significant calf tenderness, she does have some anterior tenderness within the leg with associated bruising following her fall, this has improved slightly today) Neurological: Positive Sensation First Dorsal Web Space, Sensation to light touch intact, Extensor Hallicus Longus Intact, Flexor Hallicus Longus Intact, Dorsiflexion Intact, Plantarflexion Intact - Assessment and Plan (1) Intertrochanteric fracture of right hip Acute S72.141A - DISPLACED INTERTROCHANTERIC FRACTURE OF RIGHT FEMUR, INIT Present on Admission: Yes initial encounter closed S72.141A - Displaced intertrochanteric fracture of right femur, initial encounter for closed fracture Plan: s/p IM nail PT/OT/TTWB TEDS/SCDS/Lovenox for DVT prophylaxis Continue pain management D/c planning, awaiting approval for SNF/rehab still.
[2016-04-03] MEDS: [UNRECOGNIZED DRUG - OTHER] PO SCH (13:52)
[2016-04-03 14:02] VITALS: BP 111/62; PULSE 78; TEMP 97.5
--- NOTE | 2016-04-03 14:40 | PCM.DCS92 ---
- Final/Secondary Discharge Diagnosis (1) Intertrochanteric fracture of right hip Acute S72.141A - DISPLACED INTERTROCHANTERIC FRACTURE OF RIGHT FEMUR, INIT Present on Admission: Yes initial encounter closed S72.141A - Displaced intertrochanteric fracture of right femur, initial encounter for closed fracture Comment: Patient is doing well. She is continuing with physical therapy. A bed in a skilled facility is available however we are awaiting approval from her insurance before that bed can be taken. (2) Elevated LFTs Acute R94.5 - ABNORMAL RESULTS OF LIVER FUNCTION STUDIES Present on Admission: Yes Comment: It appears that patient has a bed having a medication reaction to the Protonix. Protonix is known to increase LFTs. Will stop Protonix and monitor closely. Gallbladder ultrasound on remark (3) Anemia Acute D64.9 - ANEMIA, UNSPECIFIED iron deficiency Comment: Anemia stable for now postop. (4) Acute cystitis with hematuria Resolved N30.01 - ACUTE CYSTITIS WITH HEMATURIA Present on Admission: Yes Comment: Has completed 5 days of IV antibiotics for E coli UTI. Will discontinue Rocephin after today. Discharge Disposition: Nursing Home Facility Discharge Condition: Improved Cognitive Discharge Status: Unimpaired Fuctional Discharge Status: Walker Assistance, Fall Risk, Recent lower extremety joint replacement, Ambulatory Dysfunction Physician Follow up/Referrals: Wellington Sanchez MD [Primary Care Provider] - One Week Félix Soliz DO [Staff Physician] - One Month New Prescriptions: Fluticasone Propionate [Flonase] 1 spray SHERRY BID #1 each Cephalexin Monohydrate [Keflex] 250 mg PO TID #21 capsule Enoxaparin Sodium [Lovenox] 40 mg SQ DAILY #12 each Oxycodone Immediate Release [Oxycodone Immediate Release (OxyIR)] 5 mg PO Q4H PRN #40 tab PRN Reason: Pain Vitamins, Multiple [Unicap] 1 cap PO DAILY@1200 #100 capsule Alprazolam [Xanax] 1 mg PO HS PRN #30 tablet PRN Reason: SLEEP,ANXIETY Discharge Home Medication List Atenolol [Tenormin] 25 mg PO DAILY 03/12/13 [History Confirmed 04/03/16] Gabapentin [Neurontin] 100 mg PO TID 03/12/13 [History Confirmed 04/03/16] Ranitidine HCl [Zantac] 150 mg PO BID 09/05/14 [History Confirmed 04/03/16] Acetaminophen Tablet [TYLENOL Tablet] 650 mg PO Q6H PRN #60 tablet 11/10/15 [Rx Confirmed 03/29/16] Ensure [Ensure Plus ([place])] 240 ml PO 1400 #30 can 11/10/15 [Rx Confirmed 04/03/16] Guaifenesin [Robitussin] 10 ml PO Q6H PRN #240 udc 11/10/15 [Rx Confirmed ] Omeprazole 20 mg PO DAILY 03/26/16 [History Confirmed 03/29/16] Calcium Carbonate + Vitamin D [Oscal with Vitamin D] 500 mg PO BIDLS #60 tablet 03/29/16 [Rx] Docusate-Senna Concentrate [Senokot S or Judy Colace] 2 tab PO HS #60 tablet 08/08 [Rx] Enoxaparin Sodium [Lovenox] 40 mg SQ DAILY #12 each 03/29/16 [Rx] Fluticasone Propionate [Flonase] 1 spray SHERRY BID #1 each 03/29/16 [Rx] Vitamins, Multiple [Unicap] 1 cap PO DAILY@1200 #100 capsule 03/29/16 [Rx] Alprazolam [Xanax] 1 mg PO HS PRN #30 tablet 04/03/16 [Rx] Cephalexin Monohydrate [Keflex] 250 mg PO TID #21 capsule 04/03/16 [Rx] Oxycodone Immediate Release [Oxycodone Immediate Release (OxyIR)] 5 mg PO Q4H PRN #40 tab 04/03/16 [Rx] New Discharge Medications (Rx) Calcium Carbonate + Vitamin D [Oscal with Vitamin D] 500 mg PO BIDLS #60 tablet 03/29/16 [Rx] Docusate-Senna Concentrate [Senokot S or Judy Colace] 2 tab PO HS #60 tablet 08/08 [Rx] Enoxaparin Sodium [Lovenox] 40 mg SQ DAILY #12 each 03/29/16 [Rx] Fluticasone Propionate [Flonase] 1 spray SHERRY BID #1 each 03/29/16 [Rx] Vitamins, Multiple [Unicap] 1 cap PO DAILY@1200 #100 capsule 03/29/16 [Rx] Alprazolam [Xanax] 1 mg PO HS PRN #30 tablet 04/03/16 [Rx] Cephalexin Monohydrate [Keflex] 250 mg PO TID #21 capsule 04/03/16 [Rx] Oxycodone Immediate Release [Oxycodone Immediate Release (OxyIR)] 5 mg PO Q4H PRN #40 tab 04/03/16 [Rx] O2 Device: Room Air Diet at Discharge: As Tolerated, Regular Activity: Limited (TTWB), No Heavy Lifting, No Driving Call Office For: Worsening Symptoms, Wound is Draining Pus, Fever over 101 F, Fever over 100.5, Wound is Painful, Wound is Red, Weight Gain (see below), Pain Uncontrolled By Meds, Other (See Details) Discontinue use of:: Alcohol, All Illegal Substances, All Types of Tobacco - DC Summary Notes Hospital Course Note:: Discharge summary on patient named GIANNA VENTURA admitted to [facility] on 03/26/16 by Tino Lester MD. Date of discharge is []. Pleasant 81-year-old female presented to our facility with right hip pain found to have a hip fracture. She underwent surgery and her course was unremarkable. She slowly recovered and has finally been approved by insurance to go to intermediate. She will transfer to [place] for intermediate. She did require transfusion of 2 units of packed red blood cells. At this point patient is reached maximal benefit of hospitalization. She is stable for discharge to intermediate facility. Wound Care Surgical Site: Yes Site Description (if applicable): right hip May Shower Starting:: upon discharge Dressing/Site Care (if applicable): daily dry dressing changes as needed - Physical Exam Vital Signs: Last Vital Signs Temp 97.5 F 04/03/16 13:56 Pulse 78 04/03/16 13:56 Resp 18 04/03/16 13:56 BP 111/62 04/03/16 13:56 Pulse Ox 99 04/03/16 13:56 Oxygen Pulse Oxygen Saturation 99 O2 Device Room Air Oxygen Flow Rate 1 Fraction of Inspired Oxygen ( FIO2) Constitutional: No apparent distress Oriented to: Time, Person, Place - HEENT Head: Normal Eye: Normal Oropharynx: Normal Tympanic Membrane: Normal Nose: No Symptoms Reported - Respiratory/Cardiovascular Respiratory: Normal - CTA (Clear to auscultation bilaterally. No wheezing, rales , rhonchi. Chest wall movements are symmetric. No use of accessory muscles to breathe.) Cardiovascular: Normal (RRR , Normal S1, S2. No murmurs, rubs, or gallops. PMI non-displaced. Carotids: no carotid bruits. No bradycardia or tachycardia. DP pulses 2+ bilaterally.) - GI Auscultation: Normal Palpation: Normal Tenderness: Non tender Rectal Exam: Deferred - Musculoskeletal Back: Normal (Non-Tender) Extremities: Other (Patient's right hip is now anatomically aligned. She is tender to palpate laterally of the trochanter. Moderate edema and mild ecchymosis are present. Compartments are soft. Right knee is mildly swollen. She has mild tenderness to palpation about the distal thigh. She is able to fully plantar flex and dorsiflex her ankle distally. Subjective sensation to light touch intact L4-S1 distally bilateral lower extremities. Palpable dorsalis pedis and posterior tibial pulses bilaterally. Remaining bony prominences of bilateral upper and lower extremities were palpated without tenderness, step-off, or deformity. She does have some arthritic changes in the feet and ankles with varus rotation of the right foot.) - Integumentary Skin: Normal (Warm dry no rashes) Lymphatics: Normal (No lymph node swelling or pain.) - Neurologic Memory Impaired: Normal Motor Function: Normal (Motor 5/5 throughout.Normal tone, Pulses 2+ No cyanosis or edema, FROM) Cranial Nerve: Normal (CN II-XII intact sensation, strength 5/5) Cerebellar: Normal Mood Description: Appropriate Thought: Coherent Perception: Normal - Other Exam Other Exam Findings: Laboratory Results - last 24 hr 04/01/16 06:41 Hepatitis A IgM Ab Negative Hep Bs Antigen Negative Hep B Core IgM Ab Negative Hepatitis C Antibody 0.1
== END 2016-04-03 17:36 | DRG 481 ==
LOC: ED 22:02 → MPS3 03-26 00:19
PROVIDERS: ADMIT Internal Medicine; ATTEND Hospitalist
PROC: 0QS606Z Reposition Right Upper Femur with Intramedullary Internal Fixation Device, Open Approach (ICD-10-PCS; principal; 2016-03-26 09:00)
PROC: 30233P1 Transfusion of Nonautologous Frozen Red Cells into Peripheral Vein, Percutaneous Approach (ICD-10-PCS; 2016-03-28)
DX: S72.141A Displaced intertrochanteric fracture of right femur, initial encounter for closed fracture (principal); N30.01 Acute cystitis with hematuria; I48.91 Unspecified atrial fibrillation; D62 Acute posthemorrhagic anemia; W01.0XXA Fall on same level from slipping, tripping and stumbling without subsequent striking against object, initial encounter; Y93.01 Activity, walking, marching and hiking; B96.20 Unspecified Escherichia coli [E. coli] as the cause of diseases classified elsewhere; R94.5 Abnormal results of liver function studies; K21.9 Gastro-esophageal reflux disease without esophagitis; Z87.440 Personal history of urinary (tract) infections; M19.90 Unspecified osteoarthritis, unspecified site; F41.9 Anxiety disorder, unspecified; Z79.899 Other long term (current) drug therapy; D50.9 Iron deficiency anemia, unspecified
CPT/HCPCS: 36415; 36430; 51798; 71010; 73521; 76705; 80048; 80053; 80074; 80307; 81001; 82306; 82550; 84484; 85014; 85018; 85025; 85027; 85610; 85730; 86850; 86900; 86901; 86920; 87040; 87077; 87086; 87186; 87641; 93005; 94762; 96372; 96374; 97162; 97166; 99285; G0237; J0131; J0330; J0690; J0696; J1170; J1650; J1940; J2001; J2250; J2270; J2370; J2405; J2765; J3010; J3490; J7060; J7070; P9016